=== PATIENT | female | born 1945 | race Caucasian/White ===

== ENCOUNTER 2018-01-31 05:04 | Inpatient (IN) ==
[2018-01-31] MEDS ORDERED: Metoprolol Tartrate 25 MG Tablet PO ONE (05:45)
[2018-01-31] MEDS ORDERED: Sodium Chlor 0.9% Inj 500 ML IV.CONT ONE (05:45)
[2018-01-31] MEDS ORDERED: Chlorhexidine Gluconate 2% 1 Pack (2 Cloths) TOPICAL ONE (05:45)
[2018-01-31] MEDS ORDERED: Heparin - SQ 10,000 UNITS/ML Vial SQ SCH (06:00)
[2018-01-31] MEDS ORDERED: Famotidine PF Inj 20 MG/2 ML Vial ONE (07:03)
[2018-01-31] MEDS ORDERED: Ketorolac Inj 30 MG/ML (IVP) Vial IV.PUSH ONE (07:15)
[2018-01-31] MEDS ORDERED: Phenylephrine/NS 1000 MCG/10ML Syringe IV.PUSH ONE (07:15)
[2018-01-31] MEDS ORDERED: Lidocaine PF 1% Inj 5 ML Syringe INFILTRATN ONE (07:15)
[2018-01-31] MEDS ORDERED: Sugammadex Inj 200 MG/2 ML Vial IV.PUSH ONE (11:22)
[2018-01-31] MEDS ORDERED: LORazepam 0.5 MG Tablet PO PRN (11:39)
[2018-01-31] MEDS ORDERED: Morphine Inj 30 MG/30 ML PCA.VIAL PCA PRN (11:39)
[2018-01-31] MEDS ORDERED: Naloxone Inj 0.4 MG/ML Vial IV.PUSH PRN (11:39)
[2018-01-31] MEDS ORDERED: Ketorolac Inj 30 MG/ML (IVP) Vial IV.PUSH SCH (12:00)
[2018-01-31] MEDS ORDERED: *Meperidine Inj 25 MG/ML Vial PERIprocedural Use ONLY ONE (12:13)
[2018-01-31] MEDS ORDERED: Morphine Inj 4 MG/ML Vial ONE (12:15)
[2018-01-31] MEDS ORDERED: fentaNYL Citrate Inj 100 MCG/2 ML Ampul ONE (12:15)
[2018-01-31] MEDS ORDERED: Morphine Inj 30 MG/30 ML PCA.VIAL PCA ONE (12:22)
[2018-01-31] MEDS: KCL 20 mEq/D5W/NaCl 0.45% Inj 1,000 ML IV.CONT SCH ×2 (12:24→22:53)
--- NOTE | 2018-01-31 15:17 | P.PNONC ---
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: patient is resting in bed no complaints using MATCHER OPERATOR pain controlled denies n/v Objective Vital Signs/Intake & Output: Vital Signs 01/31/18 06:19 01/31/18 11:39 01/31/18 12:04 Temperature 97.8 F 97.9 F 96.8 F L Pulse Rate 69 66 71 Respiratory Rate 20 18 24 Blood Pressure 142/83 H 111/70 103/55 L Pulse Oximetry 93 L 99 01/31/18 12:15 01/31/18 12:30 01/31/18 12:45 Temperature Pulse Rate 67 74 68 Respiratory Rate 10 L 13 11 L Blood Pressure 109/59 L 103/56 L 115/63 Pulse Oximetry 99 99 99 Intake & Output 01/30/18 01/31/18 01/31/18 18:59 06:59 18:59 Intake Total 2700 / 2700 Output Total 1440 / 1440 Balance 1260 / 1260 Weight 72.7 kg Intake: IV 100 / 100 Ancef Inj 1,000 MG In NS Inj 100 / 100 100 ML @ 100 mls/hr IV.SIG RENTAL REPRESENTATIVE [facility] Rx#:[id number] Anesthesia Amount 2600 / 2600 Output: Estimated Blood Loss 600 / 600 Urine Amount (Catheter) 840 / 840 3-way Urethral 840 / 840 Other: Weight On Admission 72.7 kg Laboratory Results: Laboratory Results - last 24 hr 01/31/18 06:55 Blood Type A Positive Antibody Screen Negative MTS Gel Crossmatch See Detail Medications: Active Medications Generic Name Dose Route Start Last Admin Trade Name Freq PRN Reason Stop Dose Admin Heparin Sodium (Porcine) 5,000 units 01/31/18 06:00 01/31/18 07:05 Heparin Inj SQ 01/31/18 21:00 5,000 units RENTAL REPRESENTATIVE [facility] Administration Sodium Chloride 500 mls @ 30 mls/hr 01/31/18 05:45 01/31/18 07:12 Ns Inj IV.CONT 01/31/18 22:24 Not Given .[id number] ONE Cefazolin Sodium 1,000 mg/ 100 mls @ 100 mls/hr 01/31/18 06:00 01/31/18 07:40 Sodium Chloride IV.SIG 01/31/18 21:00 Infused RENTAL REPRESENTATIVE [facility] Infusion Potassium Chloride/Dextrose/Sod Cl 1,000 mls @ 100 mls/hr 01/31/18 11:45 12:24 D5w/1/2ns + Kcl 20 Meq Inj IV.CONT 100 mls/hr .Q10H [facility] Administration Morphine Sulfate 30 mg in 30 mls @ 0 mls/hr 01/31/18 11:39 01/31/18 12:24 Morphine Inj MATCHER OPERATOR 0 mls/hr UNSCH PRN Administration per MATCHER OPERATOR parameters 0 MG/HR Objective Remarks: GENERAL: Well-nourished, well-developed patient. SKIN: Warm and dry. HEAD: Normocephalic. EYES: No scleral icterus. No injection or drainage. CARDIOVASCULAR: Regular rate and rhythm without murmurs. RESPIRATORY: Breath sounds equal bilaterally. No accessory muscle use. GASTROINTESTINAL: Abdomen soft, dressing is c/d/i EXTREMITIES: teds and scds MUSCULOSKELETAL: Adequate muscle tone. NEUROLOGICAL: No obvious focal deficit. Awake, alert, and oriented x3. PSYCHIATRIC: Appropriate mood and affect; insight and judgment normal. Assessment/Plan (1) Pelvic mass in female Code(s): R19.00 - Intra-abdominal and pelvic swelling, mass and lump, unspecified site Status: Resolved - Plan s/p x lap ARI with BSO and resection of pelvic mass post op orders in chart MATCHER OPERATOR and Toradol for pain ADAT OOB to chair with assistance remove Noble at post op day 2 IS to bedside
[2018-01-31] MEDS: Ketorolac Inj 30 MG/ML (IVP) Vial IV.PUSH SCH (18:35)
[2018-01-31] MEDS: Heparin - SQ 10,000 UNITS/ML Vial SQ SCH (22:52)
[2018-02-01] MEDS: Ketorolac Inj 30 MG/ML (IVP) Vial IV.PUSH SCH ×5 (00:35→23:50)
--- NOTE | 2018-02-01 07:41 | P.PN ---
Subjective Interval history: c/o discomfort c/w surgery intermittent sleep Physical Exam Vital signs: Vital Signs 01/31/18 11:39 01/31/18 12:04 01/31/18 12:15 Temperature 97.9 F 96.8 F L Pulse Rate 66 71 67 Respiratory Rate 18 24 10 L Blood Pressure 111/70 103/55 L 109/59 L Pulse Oximetry 93 L 99 99 01/31/18 12:30 01/31/18 12:45 01/31/18 16:00 Temperature 97.9 F Pulse Rate 74 68 71 Respiratory Rate 13 11 L 16 Blood Pressure 103/56 L 115/63 117/70 Pulse Oximetry 99 99 97 01/31/18 20:00 01/31/18 23:11 02/01/18 00:00 Temperature 97.4 F L 97.9 F Pulse Rate 75 74 Respiratory Rate 16 16 0 L Blood Pressure 125/79 112/73 Pulse Oximetry 95 96 02/01/18 01:05 02/01/18 04:00 Temperature 97.5 F L Pulse Rate 70 Respiratory Rate 16 16 Blood Pressure 112/73 Pulse Oximetry 92 L Intake & Output 01/31/18 02/01/18 02/01/18 18:59 06:59 18:59 Intake Total 2700 / 2700 1150 / 1150 Output Total 1440 / 1440 400 / 400 Balance 1260 / 1260 750 / 750 Weight 72.7 kg Intake: IV 100 / 100 1000 / 1000 D5W/1/2NS + KCL 20 mEq Inj 1, 1000 / 1000 000 ML @ 100 mls/hr IV.CONT . Q10H [facility] Rx#:[id number] Ancef Inj 1,000 MG In NS Inj 100 / 100 100 ML @ 100 mls/hr IV.SIG DAY CAMP UNIT LEADER [facility] Rx#:[id number] Oral 150 / 150 Anesthesia Amount 2600 / 2600 Output: Estimated Blood Loss 600 / 600 Urine Amount (Catheter) 840 / 840 400 / 400 3-way Urethral 840 / 840 400 / 400 Other: Date of Last Bowel Movement 01/31/18 - Constitutional no acute distress - Routine Respiratory Exam Present: CTA bilaterally (mild basilar rales) - Routine Cardiovascular Exam Present: RRR - Routine Abdominal Exam Present: soft, wound (clean, dry) - Routine Neurological Exam Present: alert, oriented X3 - Urinary Catheter Management 3-way Urethral Cath placed during this visit: yes Reason for continuing: Other continuation reason Insertion date: 01/31/18 Insertion time: 07:50 Results - Labs Laboratory Results - last 24 hr 01/31/18 06:55 Blood Type A Positive Antibody Screen Negative MTS Gel Crossmatch See Detail Assessment and Plan - Assessment (1) Pelvic mass in female Code(s): R19.00 - Intra-abdominal and pelvic swelling, mass and lump, unspecified site Status: Resolved - Plan pod #1 doing well in early post-op period findings at surgery, preliminary path discussed q&a, she understands oob to chair, ambulate with assist, spirometry, adat, remove martinez when ambulatory
[2018-02-01] MEDS: KCL 20 mEq/D5W/NaCl 0.45% Inj 1,000 ML IV.CONT SCH ×2 (08:03→17:38)
[2018-02-01 08:10] LABS: Baso % (Auto) 0.1 % (0.0-2.0); Eos % (Auto) 0.1 % (0.0-4.0); Hematocrit 37.7 % (35.0-46.0); Hemoglobin 12.8 gm/dL (11.6-15.3); Lymph # (Auto) 1.4 th/mm3 (1.0-4.8); Lymph % (Auto) 9.6 % (9.0-44.0); Mean Corpuscular HGB Conc 33.9 % (32.0-36.0); Mean Corpuscular Volume 85.6 fL (80.0-100.0); Mean Platelet Volume 7.9 fL (7.0-11.0); Mono # (Auto) 1.3 th/mm3 (0.0-0.9); Mono % (Auto) 9.5 % (0.0-8.0); Neut # (Auto) 11.4 th/mm3 (1.8-7.7); Neut % (Auto) 80.7 % (16.0-70.0); Platelet Count 232 th/mm3 (150-450); Red Blood Count 4.41 mil/mm3 (4.00-5.30); Red Cell Distribution Width 13.9 % (11.6-17.2); White Blood Count 14.2 th/mm3 (4.0-11.0)
[2018-02-01 08:42] LABS: Calcium 7.7 mg/dL (8.5-10.1); Potassium 4.2 meq/L (3.5-5.1)
[2018-02-01] MEDS: Heparin - SQ 10,000 UNITS/ML Vial SQ SCH ×2 (09:17→23:43)
--- NOTE | 2018-02-01 10:05 | MP ---
cc: Alisha Jones MD DATE OF OPERATION: 01/31/2018 PREOPERATIVE DIAGNOSES: 1. Large complex abdominal pelvic mass. 2. Elevated CA-125. 3. Intermittent abdominal pain, nausea. POSTOPERATIVE DIAGNOSES: 1. Left ovarian cyst adenofibroma with torsion. 2. Right high-grade ovarian adenocarcinoma. PROCEDURE: Exploratory laparotomy, total abdominal hysterectomy, bilateral salpingo-oophorectomy (with a resection of bilateral ovarian masses), omentectomy, intraperitoneal biopsies extensive lysis of adhesions. SURGEON: Alisha Jones MD. CORPORATE TRAVEL AGENT: Dara dental chairside assistant. ANESTHESIA: General endotracheal anesthesia. ESTIMATED BLOOD LOSS: 600 mL. IV FLUIDS: 2400 mL. URINE OUTPUT: 600 mL. HISTORY: A 72-year-old female who reports being asymptomatic until she went for a walk 1 day and suddenly had abdominal pain fairly intense associated with nausea and vomiting. She presented to the emergency room where exam and imaging showed a large complex mass thought to be of probable ovarian origin occupying the pelvis and extending to the level of the umbilicus at that time measuring approximately 20 cm in greatest dimension. CA-125 modestly elevated at 300. She was seen in SOLAR FIELD SERVICE TECHNICIAN oncology office where she was counseled. Surgery was recommended. She was seen again in the preoperative holding area with her family . The findings and plan of care were discussed and reviewed. Questions were asked and answered. She expressed good understanding and was ready to move forward with surgery. FINDINGS: Upon entry into the peritoneal cavity, some adhesions were taken down between the mass and the anterior abdominal wall. There were some vascular adhesions that were cauterized and transected. A large mass was in the central pelvis. There were several hundred milliliters of ascites. The ascites was removed and collected for cytology. Further dissection confirmed the large mass to be arising from and replacing the right ovary. Hand-held retractors were used to gain surgical exposure. When it became assessment to try to identify the left ovary showed there also to be a mass in the left ovary that was actually reversed above the level of the pelvic brim and the vascular pedicles were clearly torsed. The uterus was small, grossly appeared normal. There was no appreciably enlarged pelvic or paraaortic lymph nodes. The omentum was grossly normal without obvious tumor. There were no peritoneal implants. The liver diaphragm edges were smooth. The large and small bowel and adjacent mesentery were free of tumor implants. There was no appreciably enlarged, as mentioned, no adenopathy detected. At the conclusion of the case, essentially everything that was visibly or palpably abnormal had been removed as the abnormalities appeared to be limited to the ovarian masses. It is noted that even though frozen section on the left ovary showed what appeared to be a benign cystadenofibroma, there were malignant implants on the surface of the ovary that appeared more likely on preliminary assessment to be metastatic than to be from that ovary. Frozen section on the right ovarian mass showed that to be a high-grade adenocarcinoma. STATEMENT OF COMPLEXITY/MODIFIER: The complexity of this case was increased and significant additional time was required in dissection for lysing extensive adhesions to gain access to the peritoneal cavity to establish anatomy, restore normal anatomy, resect the tumor, and to accomplish surgical objectives. Modifier should be applied accordingly. DETAILS OF PROCEDURE: She was taken to the operating room and placed in dorsal lithotomy position after general endotracheal anesthesia was administered. A timeout was undertaken. She was identified by site recognition and hospital ID bracelet and the proposed procedure was reviewed and confirmed. She was carefully positioned in padded Yellofin stirrups in lithotomy position, arms padded out to the sides. All positions were checked and noted to be properly aligned with no malalignment or pressure points. She was prepped and draped in sterile fashion. Noble catheter had been placed in the bladder. Ioban used across the abdominal area and confirmed that an orogastric tube was in the stomach on suction. Midline incision made from the symphysis to the umbilicus, carried down to the level of the fascia. The fascia was entered. The rectus muscles were in the midline. The peritoneal cavity was entered with initial assessment as described above. Melania-colored ascites from the pelvis was collected and sent for cytology. Visual and manual palpation allowed identification of the small uterus, which was retroverted in the cul-de-sac. Clamps were placed on the lateral angles of the uterus to elevate the uterus, which led to better visualization and identification of the left ovary malpositioned with torsed gonadal vessels as described above. Attention was directed first to the left side. There were vascular adhesions between the ovaries in between the ovarian mass and the abdominal wall. These were cauterized and transected to help facilitate mobility. The left round ligament was doubly suture ligated and transected. The anterior and posterior leafs of the broad ligament were opened. The left ureter was identified. The left infundibulopelvic ligament was isolated. The intervening peritoneum was opened. The infundibulopelvic ligament was dissected free of the adjacent adhesions between the colon and the infundibulopelvic ligament until the gonadal vessels could be clamped, cut, and doubly suture ligated. The left uteroovarian ligament was isolated and then clamped and cut, thereby removing the left ovarian mass which was sent for frozen section analysis with findings as described above. Attention was directed toward the right side where the right round ligament was doubly suture ligated, transected. The anterior and posterior leaves of the broad ligament were opened. The right ureter was identified. The right infundibulopelvic ligament was isolated. The intervening peritoneum was opened. The infundibulopelvic ligament was dissected to the level of the pelvic brim where it was doubly clamped, cut, and doubly suture ligated. Additional adhesions were taken down with sharp dissection circumferentially around the right ovarian mass until it could be mobilized, isolated attached by the right uteroovarian ligament, which was clamped and cut, thereby removing the right ovarian mass which was sent for frozen section analysis with findings as described above. Attention was now directed to re-explore the abdomen as there was now greater access. Essentially the remaining anatomy was completely normal as outlined. Attention was directed toward the omentectomy. The fascial incision was extended a couple of centimeters to the left of the umbilicus without having to extend the skin incision and this gave enough exposure to begin isolation and dissection of the omentum. Dissection was started near the hepatic flexure. Nonvascular attachments were taken down with cautery. Vascular attachments were isolated, clamped, cut, and suture ligated with 2-0 Vicryl sutures in a stepwise fashion, followed along the transverse colon towards the splenic flexure, such that the infracolic omentum with a small section of the gastrocolic ligament was removed. It was again inspected, palpated, and as described above was grossly normal. Multifocal peritoneal biopsies were taken down with sharp dissection and/or cautery in the abdomen and pelvis. There were no visible abnormalities, but any area of adhesions were also included in the dissection and sent collectively as peritoneal biopsies. Careful inspection and palpation of the pelvic and paraaortic lymph nodes did not reveal any suspiciously enlarged lymph nodes. It was felt that the morbidity associated with lymphadenectomy exceeded potential benefit. So, lymphadenectomy was not performed. Lap pads and a Bookwalter retractor were used to assist in surgical exposure and direction. Our attention was directed toward hysterectomy. The vesicouterine peritoneum was dissected off the lower uterine segment and cervix bilaterally to dissect the bladder flap below the level of the cervix. The posterior peritoneum was opened posteriorly and dissected down below the level of the cervix. The uterine vessels were skeletonized bilaterally and then clamped, cut, and suture ligated. Dissection was carried along the right side where the right cardinal, paracervical, and uterosacral ligaments were isolated, clamped, cut, and suture ligated in stepwise fashion; and then attention was redirected toward the left side, where similarly the left cardinal, paracervical, and uterosacral ligaments were isolated, clamped, cut, and suture ligated. Curved Vernon clamps were placed below the cervix at the lateral vaginal angles and sharp dissection was used to separate the cervix from the upper vagina. The specimen was inspected. The entire cervix noted to be removed and the uterus and cervix were sent for permanent histopathologic analysis. The vaginal cuff was supported at the angles with [id number] #0 Vicryl sutures, incorporating the edge of the uterosacral ligament and posterior peritoneum, and the remainder of the vaginal cuff was closed with full-thickness [id number] sutures incorporating the edge of the posterior peritoneum, which rendered the vaginal cuff hemostatic and well supported. The pelvis was thoroughly irrigated. Small bleeders rendered hemostatic with bipolar cautery or interrupted [id number] 3-0 Vicryl sutures until all sites were satisfactorily hemostatic. There was good peristalsis of ureters bilaterally. All grossly detectable tumor had been removed and hemostatic Surgicel SNoW was placed across the lateral pelvic sidewall dissection and across the vaginal cuff to assist in continued hemostasis. The lap pads and Bookwalter retractor were removed. Visual and palpable inspection confirmed there were no remaining foreign objects in the peritoneal cavity. Inspection, however, revealed that there was still some residual omentum toward the hepatic flexure with adherence to the right anterior abdominal wall; and although the omentum appeared grossly normal, steps were taken to remove this to ensure there was no focus of microscopic disease that persisted. Sharp dissection was used to free the ascending colon from the anterior abdominal wall and to free the omentum from the ascending colon at the hepatic flexure along the transverse colon. Nonvascular attachments were with cautery. Vascular attachments were isolated, clamped, cut, and suture ligated with 2-0 Vicryl sutures to remove this residual omentum. The bowel and the adjacent mesentery were inspected and noted to be intact without injury. The large bowel was inspected throughout and appeared intact. The small bowel was run from the ileocecal valve to the ligament of Treitz. The appendix appeared normal. There were no peritoneal implants on the large or small bowel or on any of the mesentery. There was no compromise to the small or large bowel, no adhesions that remained, and essentially appeared normal. Visual and manual inspection again confirmed there were no remaining foreign objects in the peritoneal cavity. Repeat count confirmed the counts were normal and attention was directed toward closing. The abdominal wall was closed with a running looped PDS suture in a modified Smead-Willard fashion starting at the apices and meeting in the midpoint where the sutures were tied. Subcutaneous tissue was irrigated. Beulah fascia reapproximated with interrupted 2-0 Vicryl sutures and the skin edges were closed with 3-0 Vicryl subcuticular. Steri-Strips and dry sterile dressing placed over the incision. Pelvic exam confirmed there were no remaining foreign objects in the vagina. Preliminary and final counts were now correct. She was returned to dorsal supine position and was pending reversal of anesthesia when I left the operating room to precede her to the postanesthesia care unit. MD REBECCA Amor/alyssa , 07:58 AM , 08:20 AM
[2018-02-01 12:38] VITALS: O2SAT 96
[2018-02-02] MEDS: KCL 20 mEq/D5W/NaCl 0.45% Inj 1,000 ML IV.CONT SCH (03:48)
--- NOTE | 2018-02-02 07:57 | P.PNONC ---
Subjective Interval history: industrial machine system technician/onc progress note POD #3 patient is sitting up in bed without any complaints has been OOB to chair and ambulate denies any vomiting pain controlled meets criteria for discharge home today after first void Objective Vital Signs/Intake & Output: Vital Signs 02/01/18 08:00 02/01/18 12:00 02/01/18 16:00 Temperature 98.4 F 98.1 F Pulse Rate 66 74 81 Respiratory Rate 16 16 16 Blood Pressure 123/71 105/60 Pulse Oximetry 99 96 02/01/18 16:02 02/01/18 20:00 02/02/18 00:00 Temperature 98.3 F 98.2 F Pulse Rate 77 80 Respiratory Rate 16 16 Blood Pressure 117/65 117/66 Pulse Oximetry 96 02/02/18 00:20 02/02/18 04:00 Temperature 98.2 F Pulse Rate 93 H Respiratory Rate 16 16 Blood Pressure 124/71 Pulse Oximetry Intake & Output 02/01/18 02/02/18 02/02/18 18:59 06:59 18:59 Intake Total 1999 1200 / 1200 Output Total 1300 / 1300 Balance 1999 -100 / -100 Weight 72.5 kg Intake: IV 1999 1000 / 1000 D5W/1/2NS + KCL 20 mEq Inj 1, 1999 1000 / 1000 000 ML @ 100 mls/hr IV.CONT . Q10H [facility] Rx#:[id number] Oral 200 / 200 Output: Urine Amount (Catheter) 1300 / 1300 3-way Urethral 1300 / 1300 Other: Date of Last Bowel Movement 01/31/18 Result Diagrams: 02/01/18 07:41 02/01/18 07:41 Laboratory Results: Laboratory Results - last 24 hr 02/01/18 02/01/18 07:41 07:41 WBC 14.2 H RBC 4.41 Hgb 12.8 Hct 37.7 MCV 85.6 MCH 29.0 MCHC 33.9 RDW 13.9 Plt Count 232 D MPV 7.9 Neut % (Auto) 80.7 H Lymph % (Auto) 9.6 Sargent % (Auto) 9.5 H Eos % (Auto) 0.1 Baso % (Auto) 0.1 Neut # (Auto) 11.4 H Lymph # (Auto) 1.4 Sargent # (Auto) 1.3 H Eos # (Auto) 0.0 Baso # (Auto) 0.0 WBC Differential . Differential Comment Auto diff final Sodium 138 Potassium 4.2 Chloride 106 Carbon Dioxide 25.0 Anion Gap 7 BUN 10 Creatinine 0.68 Estimated GFR 85 L Random Glucose 127 H Calcium 7.7 L Medications: Active Medications Generic Name Dose Route Start Last Admin Trade Name Freq PRN Reason Stop Dose Admin Heparin Sodium (Porcine) 5,000 units 01/31/18 21:00 02/01/18 23:43 Heparin Inj SQ 5,000 units Q12HR [facility] Administration Potassium Chloride/Dextrose/Sod Cl 1,000 mls @ 100 mls/hr 01/31/18 11:45 03:48 D5w/1/2ns + Kcl 20 Meq Inj IV.CONT 100 mls/hr .Q10H [facility] Administration Morphine Sulfate 30 mg in 30 mls @ 0 mls/hr 01/31/18 11:39 02/01/18 19:19 Morphine Inj FORMULA MIXER 0 mls/hr UNSCH PRN Infusion per FORMULA MIXER parameters 0 MG/HR Ketorolac Tromethamine 15 mg 01/31/18 18:00 02/01/18 23:50 Toradol Inj IV.PUSH 02/02/18 12:01 15 mg Q6HR [facility] Administration Ondansetron HCl 4 mg 01/31/18 11:39 02/01/18 19:40 Zofran Inj IV.PUSH 4 mg Q6H PRN Administration NAUSEA OR VOMITING Pravastatin Sodium 40 mg 02/01/18 09:00 02/01/18 09:17 Pravachol PO 40 mg DAILY [facility] Administration Sodium Chloride 2 ml 01/31/18 21:00 02/01/18 23:44 Ns Flush IV.FLUSH Not Given BID [facility] Objective Remarks: GENERAL: Well-nourished, well-developed patient. SKIN: Warm and dry. HEAD: Normocephalic. EYES: No scleral icterus. No injection or drainage. CARDIOVASCULAR: Regular rate and rhythm without murmurs. RESPIRATORY: Breath sounds equal bilaterally. No accessory muscle use. GASTROINTESTINAL: Abdomen soft, non-tender, nondistended. dressing c/d/i, +bs x 4 EXTREMITIES: No cyanosis, or edema. MUSCULOSKELETAL: Adequate muscle tone. NEUROLOGICAL: No obvious focal deficit. Awake, alert, and oriented x3. PSYCHIATRIC: Appropriate mood and affect; insight and judgment normal. Assessment/Plan (1) Pelvic mass in female Code(s): R19.00 - Intra-abdominal and pelvic swelling, mass and lump, unspecified site Status: Resolved - Plan s/p x lap ARI with BSO and resection of pelvic mass post op orders in chart FORMULA MIXER and Toradol for pain ADAT OOB to chair with assistance remove Noble at post op day 2 IS to bedside POD #3 meets criteria for discharge today ok to restart home meds discussed discharge instructions will follow up in industrial machine system technician/onc clinic in 2 weeks for final pathology needs to void prior to discharge discussed with Dr. Jones he agrees with discharge discussed with RN.
[2018-02-02] MEDS: Heparin - SQ 10,000 UNITS/ML Vial SQ SCH (09:39)
[2018-02-02] MEDS: Ketorolac Inj 30 MG/ML (IVP) Vial IV.PUSH SCH (09:59)
[2018-02-02 10:54] VITALS: BP 143/81; PULSE 82; RESP 17; TEMP 98
== END 2018-02-02 11:30 | disposition home or self-care (01) ==
LOC: HSDI 05:04 → HCIN 13:26
PROVIDERS: ADMIT Obstetrics & Gynecology Gynecologic Oncology; ATTEND Obstetrics & Gynecology Gynecologic Oncology

== ENCOUNTER 2018-02-10 18:53 | Inpatient (IN) ==
--- NOTE | 2018-02-10 23:24 | P.HPIM ---
History of Present Illness Service: [facility] hospitalists Primary Care Physician: Brock Mota Chief Complaint: Abdominal pain with nausea History of Present Illness: Mrs. Hernadez is a pleasant 72-year-old female with a history of PE/DVT in 1998 followed by 1 year of anticoagulation, right breast cancer, hyperlipidemia , and ovarian adenocarcinoma with recent exploratory laparotomy with ARI and BSO and resection of bilateral ovarian masses on 01/31/[address] Jones who was admitted to [facility] for management of small bowel obstruction and bilateral pneumonia on February 07. The patient has been transferred to [facility] under the hospitalist service for further evaluation and management. Patient is seen in her hospital room. She reports pain level of 3 out of 10, throughout abdomen but mostly on the right, worse with light palpation and improved with IV pain medications. She reports improvement of nausea with NG tube to low intermittent wall suction. . Inpatient Certification: I certify that the inpatient services were ordered in accordance with Medicare regulations governing the order. This includes certification that hospital inpatient services are reasonable and necessary and in the case of services not specified as inpatient-only under 42 CFR 419.22(n), that they are appropriately provided as inpatient services in accordance to with the 2-midnight benchmark under 43 CFR 412.3(e) Review of Systems All other systems reviewed negative except as stated in HPI [facility] - Medical History Medical History: Medical History (Last Updated 02/11/18 @ 01:12 by SERGIO Fairchild) Colitis Ovarian carcinoma Pneumonia SBO (small bowel obstruction) High cholesterol History of anesthesia reaction Mass Nausea and vomiting Wears dentures Wears eyeglasses - Surgical History Surgical History: Surgical History (Last Reviewed 02/10/18 @ 23:46 by SREGIO Fairchild) History of lumpectomy of right breast Hx of eye surgery - Family History Family History: Family History (Last Updated 02/10/18 @ 23:46 by SERIGO Fairchild) Other Family history of cancer Family history of ovarian cancer - Tobacco History Tobacco Type: Cigarettes - Substance Use History Substance History: No History of Abuse Medications and Allergies Allergies Allergy/AdvReac Type Severity Reaction Status Date / Time No Known Allergies Allergy Verified 01/31/18 06:06 Home Medications Medication Instructions Recorded Confirmed Type ibuprofen-diphenhydramine cit 2 tab PO HS 01/27/18 01/31/18 History [Advil PM] utkhqwpcbemp-nqk-jvnt-FA-vit K 1 tab PO DAILY 01/27/18 01/31/18 History [Adults Multivitamin] pravastatin 40 mg PO DAILY 01/27/18 01/31/18 History Exam Narrative: GENERAL: This is a well-nourished, well-developed patient, in no apparent distress. SKIN: No rashes, ecchymoses or lesions. Cool and dry. HEAD: Atraumatic. Normocephalic. EYES: No scleral icterus. No injection or drainage. Left eye prosthetic noted. ENT: Nose without bleeding, purulent drainage. NECK: Trachea midline. No JVD or lymphadenopathy. CARDIOVASCULAR: Regular rate and rhythm without murmurs, gallops, or rubs. RESPIRATORY: Clear to auscultation. Breath sounds equal bilaterally. No wheezes , rales, or rhonchi. GASTROINTESTINAL: Abdomen soft, diffusely tender>on right, nondistended. No guarding. Midline abdominal incision appears healing, edges are well- approximated, and incision is covered with Steri-Strips. MUSCULOSKELETAL: Extremities without clubbing, cyanosis, or edema. No calf tenderness. NEUROLOGICAL: Awake and alert. Motor and sensory grossly within normal limits. Normal speech. . Caprini VTE Risk Assessment Caprini VTE Risk Assessment: Moderate/High Risk (score >= 2) Caprini Risk Assessment Model: Point Value = 1 Point Value = 2 Point Value = 3 Point Value = 5 Age 41-60 Minor surgery BMI > 25 kg/m2 Swollen legs Varicose veins or History of unexplained or recurrent spontaneous Oral contraceptives or hormone replacement Sepsis (< 1 month) Serious lung disease, including pneumonia (< 1 month) Abnormal pulmonary function Acute myocardial infarction Congestive heart failure (< 1 month) History of inflammatory bowel disease Medical patient at bed rest Age 61-74 Arthroscopic surgery Major open surgery (> 45 min) Laparoscopic surgery (> 45 min) Malignancy Confined to bed (> 72 hours) Immobilizing plaster cast Central venous access Age >= 75 History of VTE Family history of VTE Factor V Leiden Prothrombin [id number] Lupus anticoagulant Anticardiolipin antibodies Elevated serum homocysteine Heparin-induced thrombocytopenia Other congenital or acquired thrombophilia Stroke (< 1 month) Elective arthroplasty Hip, pelvis, or leg fracture Acute spinal cord injury (< 1 month) Prophylaxis Regimen: Total Risk Factor Score Risk Level Prophylaxis Regimen 0-1 Low Early ambulation 2 Moderate Order ONE of the following: *Sequential Compression Device (SCD) *Heparin 5000 units SQ BID 3-4 Higher Order ONE of the following medications: *Heparin 5000 units SQ TID *Enoxaparin/Lovenox 40 mg SQ daily (WT < 150 kg, CrCl > 30 mL/min) *Enoxaparin/Lovenox 30 mg SQ daily (WT < 150 kg, CrCl > 10-29 mL/min) *Enoxaparin/Lovenox 30 mg SQ BID (WT < 150 kg, CrCl > 30 mL/min) AND/OR *Sequential Compression Device (SCD) 5 or more Highest Order ONE of the following medications: *Heparin 5000 units SQ TID (Preferred with Epidurals) *Enoxaparin/Lovenox 40 mg SQ daily (WT < 150 kg, CrCl > 30 mL/min) *Enoxaparin/Lovenox 30 mg SQ daily (WT < 150 kg, CrCl > 10-29 mL/min) *Enoxaparin/Lovenox 30 mg SQ BID (WT < 150 kg, CrCl > 30 mL/min) AND *Sequential Compression Device (SCD) Assessment and Plan - Plan Mrs. Hernadez is a pleasant 72-year-old female with a history of PE/DVT in 1998 followed by 1 year of anticoagulation, right breast cancer, hyperlipidemia , and ovarian adenocarcinoma with recent exploratory laparotomy with ARI and BSO and resection of bilateral ovarian masses on 01/31/[address] Jones who was admitted to [facility] for management of small bowel obstruction and bilateral pneumonia on February 07. The patient has been transferred to [facility] under the hospitalist service for further evaluation and management. Small bowel obstruction -noted on imaging at [facility] -Consult general surgery -appreciate assistance -Continue n.p.o. status with NG tube to low intermittent wall suction -Dilaudid 0.5 mg IV every 4 hours as needed for pain -Zofran PRN nausea/vomiting Bilateral pneumonia, lower lobes -noted on imaging at [facility] -Continue Levaquin as previously ordered Mild colitis -noted on imaging at [facility] -Continue metronidazole Hyperlipidemia -Holding atorvastatin at this time given n.p.o. status DVT prophylaxis -Chemoprophylaxis on hold pending general surgery evaluation -Bilateral SCDs Code Status: Patient desires DNR CODE STATUS -CODE STATUS reviewed in detail with patient- patient is aware of DNR CODE STATUS would be temporarily rescinded in the event of surgery Discussed Condition With: Dr. Cortez, patient, and RN
[2018-02-11] MEDS ORDERED: Bisacodyl 10 MG Supp RECTAL PRN (00:20)
[2018-02-11] MEDS: Sod Chloride 0.9% Inj 1,000 ML IV.CONT SCH ×3 (00:44→21:39)
[2018-02-11] MEDS: Famotidine PF Inj 20 MG/2 ML Vial IV.PUSH SCH ×3 (00:47→21:32)
[2018-02-11] MEDS: HYDROmorphone PF Inj 2 MG/ML Vial IV.PUSH PRN ×3 (04:35→17:44)
--- NOTE | 2018-02-11 09:32 | MB ---
cc: Alisha Jones MD, Renato Minouei,April Davila DATE: 02/11/2018 PHYSICIAN REQUESTING CONSULT: Kathi Andres MD REASON FOR CONSULTATION: 1. The patient known to us with ovarian cancer. 2. Recent surgery, now with signs and symptoms of small bowel obstruction. HISTORY OF PRESENT ILLNESS: A 72-year-old female who on 01/31/2018 underwent exploratory laparotomy, total abdominal hysterectomy, bilateral salpingo-oophorectomy (with resection of large bilateral ovarian masses) omentectomy, intraperitoneal biopsies, and extensive lysis of adhesions. Findings at the time of surgery were that of a benign-appearing left ovarian mass that was torsed, but it had malignant tumor implants on it. The right ovary was markedly enlarged and was clearly a poorly differentiated adenocarcinoma. It seemed to be the source of the tumor. There were no other overt areas of tumor. No intraperitoneal implants detectable at the time of surgery. She contacted our office sometime over the preceding week, where she was having abdominal pain, intermittent. She had some nausea with vomiting. She was instructed to present to our emergency room; however, her and her elected to go to [facility]. She has been admitted to [facility]. She has had a nasogastric tube in for decompression with the working premise being ileus versus small bowel obstruction. There were also findings on x-ray suggestive of possible pneumonia, and she was apparently being treated for that as well. She had some clinical improvement but without return of bowel function, and so Gastrografin contrast study upper GI with small bowel followthrough was done yesterday, which apparently showed a focal point in the mid small bowel with decompressed bowel thereafter and no transition or passage of the contrast, suggesting a small bowel obstruction. At this point, her surgeon overseeing her care at [facility] had recommended consideration of surgery, but apparently the patient and her now requested transfer to [place]. I spoke with her surgeon and transfer arrangements were made. I am very grateful for the hospitalist's willingness and assistance and for their excellent care in the management of this individual. She is seen now in consultation for further evaluation and recommendations regarding these findings. PAST MEDICAL HISTORY: She has a history of deep vein thrombosis, possible pulmonary embolus years ago. She was on anticoagulation for a 1-year period of time. She has a recent diagnosis of ovarian cancer. She has a history of hypertension, elevated cholesterol, colitis, possible pneumonia. PAST SURGICAL HISTORY: As outlined above. Recent exploratory laparotomy. She has also had a lumpectomy of the right breast. She has had eye surgery. FAMILY HISTORY: Ovarian cancer. SOCIAL HISTORY: She is , has a supportive . Has used tobacco. REVIEW OF SYSTEMS: As stated in the history of present illness. She has not felt febrile. There has been no blood noted with bladder function or with emesis. The emesis has essentially resolved as long as the nasogastric tube has been in. There has not been any consistent flatus. Her abdominal pain is low to intermediate and is intermittent in nature. PHYSICAL EXAMINATION: VITAL SIGNS: She is afebrile, pulse 72-78, respirations 16-18, blood pressure 119-143/72-84, O2 saturation is 94%-96%. GENERAL: She is alert and oriented x3. She is a little uncomfortable and appears a little anxious, but is in no acute distress. Nasogastric tube in place seems to be functioning adequately. LYMPH NODE SURVEY: Negative. LUNGS: Clear. Mild rales at the bases. CARDIOVASCULAR: Regular rate and rhythm. ABDOMEN: Perhaps slight or minimal distention. Some discomfort on deep palpation, but no overt rebound or guarding. Midline incision is healing well. No bleeding. EXTREMITIES: Nontender. No palpable cords. LABORATORY DATA: There is no updated labs yet this admission. In and outs of 100 in, 300 out with 100 of it being gastric drainage since admission. DISCUSSION: Time spent in discussion with her reviewing the findings in the case today. I am sorry she is feeling poorly. I summarized the aforementioned findings and update as per records available and discussion with [facility] surgeon. I explained that this early after surgery the most likely explanation for mechanical small bowel obstruction would be that scar tissues (adhesions) have formed at one or multiple areas that are compromising the normal anatomy and normal peristaltic function of the bowel. It is also possible that there is a strong component of an ileus, which is dysfunctional peristalsis, and whether or not that would improve and resolve with continued nasogastric decompression is uncertain. I explained that the Gastrografin study, per report, favored more likely an obstruction as opposed to an ileus. It is quite possible that surgery would be recommended, given that she had a recent midline vertical incision and pelvic dissection and almost certain that adhesions would be in the pelvis and I would suspect probably along the anterior abdominal wall adherent to the midline vertical incision. If it is possible to address the problem laparoscopically, this may help her have a more rapid recovery, and I may well consult one of our excellent colleagues in general surgery who have experience in addressing small bowel obstructions laparoscopically, which may be advantageous in her recovery. I may ask them to direct the management and hopefully I could work with them in helping her resolve these issues. I summarized the pathology from her previous surgery and discussed that whereas all grossly detectable tumor had been resected, that based on the findings once she recovers we will need to have a more detailed discussion about consideration of chemotherapy, and if she elects in favor of chemotherapy, this could be overseen by medical oncology in [place] to help with the logistical issues. Discussion ensued. Questions were asked and answered. She expressed good understanding and agreed. ASSESSMENT: 1. Ovarian cancer, status post exploratory laparotomy, tumor resection and staging on 01/31/2018. 2. Signs and symptoms of ileus versus small bowel obstruction with findings as described above. 3. Extensive discussion. PLAN: 1. I am very grateful for hospitalist excellent medical care. 1. Continue nasogastric decompression, IV fluids, supportive care with fluid and electrolyte repletion. 2. Consult general surgery to help with evaluation and management and consider whether or not if surgery is recommended this could be addressed laparoscopically. MD REBECCA Amor/josué , 07:51 AM , 08:06 AM
[2018-02-11] MEDS: Levofloxacin 500 mg Premix Inj 500 MG/100 ML PIGGYBACK IV.SIG SCH (09:57)
--- NOTE | 2018-02-11 10:44 | P.CONGS ---
[facility] Surgery Consult Note Consult date: 02/11/18 Reason for consult: other (Small bowel obstruction) Requesting physician: April Wheeler Narrative: CONSULTATION NOTE FOR SURGICAL ATTENDING, DR. ANDREW GUNN This is a 72 year old female with a past medical history of DVT in 1998, RIGHT breast cancer, hyperlipidemia and ovarian adenocarcinoma. She had a total abdominal hysterectomy and bilateral salpino-oophorectomy on Jan 31, [address] Jones. The patient had no complications and recovered in the hospital and went home on Feb 02. She was passing flatus but no gas. The patient was home for only about 5 days and reports that her appetite was low. She went to [facility] on February 07 with complaints of abdominal pain with nausea and vomiting. She had a series of CT scans and XRs and was diagnosed with a small bowel obstruction vs post operative ileus. An NGT was place on WednesdayFebruary 08. The patient was transferred to [facility] for evaluation of Dr. Jones yesterday. Of note, the patient does state that she had an "anesthesia reaction" several years ago where she was very difficult to arouse and had nausea. A General Surgery consultation has been requested. Review of Systems All other systems reviewed negative except as stated in HPI [facility] - History History Provided By: Patient, Medical Record - Medical History Medical History: Medical History (Last Reviewed 02/11/18 @ 14:57 by Andrew Gunn MD) Colitis Ovarian carcinoma Pneumonia SBO (small bowel obstruction) High cholesterol History of anesthesia reaction Mass Wears dentures Wears eyeglasses - Surgical History Surgical History: Surgical History (Last Reviewed 02/11/18 @ 14:57 by Andrew Gunn MD) History of total abdominal hysterectomy and bilateral salpingo-oophorectomy History of lumpectomy of right breast Hx of eye surgery - Family History Family History: Family History (Last Reviewed 02/11/18 @ 14:57 by Andrew Gunn MD) Other Family history of cancer Family history of ovarian cancer - Social History I have reviewed the patient's Social History: Yes - Tobacco History Second Hand Smoke Exposure: No Smoking Status: Never smoker Tobacco Type: Cigarettes - Alcohol History How Often Do You Have a Drink Containing Alcohol: Never - Substance Use History Substance History: No History of Abuse - Immunization History Tetanus Immunization: <5 Years Hx Influenza Vaccine This Season: No Medications and Allergies Allergies Allergy/AdvReac Type Severity Reaction Status Date / Time No Known Allergies Allergy Verified 01/31/18 06:06 Home Medications Medication Instructions Recorded Confirmed Type ibuprofen-diphenhydramine cit 2 tab PO HS 01/27/18 01/31/18 History [Advil PM] [id number]-rdp-[id number]-FA-vit K 1 tab PO DAILY 01/27/18 01/31/18 History [Adults Multivitamin] pravastatin 40 mg PO DAILY 01/27/18 01/31/18 History Active Medications: Active Medications Bisacodyl (Dulcolax Supp) 10 mg RECTAL DAILY PRN PRN Reason: SEVERE CONSITIPATION Famotidine (Pepcid Pf Inj) 20 mg IV.PUSH Q12HR BASIM Last Admin: 02/11/18 09:56 Dose: 20 mg Hydromorphone HCl (Dilaudid Pf Inj) 0.5 mg IV.PUSH Q4H PRN PRN Reason: pain > 4 Last Admin: 02/11/18 09:49 Dose: 0.5 mg Sodium Chloride (Ns Inj) 1,000 mls @ 100 mls/hr IV.CONT .Q10H BASIM Last Admin: 02/11/18 00:44 Dose: 100 mls/hr Levofloxacin/Dextrose (Levaquin 500 Mg Premix Inj) 500 mg in 100 mls @ 100 mls/ hr IV.SIG Q24H BASIM Last Admin: 02/11/18 09:57 Dose: 100 mls/hr Metronidazole/Sodium Chloride (Flagyl 500 Mg Inj) 100 mls @ 100 mls/hr IV.SIG Q8H BASIM Last Infusion: 02/11/18 05:24 Dose: Infused Fluconazole (Diflucan 200 Mg Premix Bag) 100 mls @ 100 mls/hr IV.SIG Q24H BASIM Ondansetron HCl (Zofran Inj) 4 mg IV.PUSH Q6H PRN PRN Reason: NAUSEA OR VOMITING Last Admin: 02/11/18 04:58 Dose: 4 mg Exam Vital signs: Vital Signs 02/10/18 22:40 02/11/18 00:00 02/11/18 04:00 Temperature 97.8 F 97.6 F 98.0 F Pulse Rate 74 72 78 Respiratory Rate 18 16 16 Blood Pressure 119/75 124/84 138/72 Pulse Oximetry 94 L 96 95 02/11/18 08:00 Temperature 98.2 F Pulse Rate 83 Respiratory Rate 18 Blood Pressure 130/85 Pulse Oximetry 98 Intake & Output 02/10/18 02/11/18 02/11/18 18:59 06:59 18:59 Intake Total 100 / 100 Output Total 300 / 300 Balance -200 / -200 Weight 69.4 kg Intake: IV 100 / 100 Flagyl 500 MG Inj 100 ML @ 100 100 / 100 mls/hr IV.SIG Q8H [facility] Rx#: [id number] Output: Urine 200 / 200 Gastric Drainage 100 / 100 Pre-Hospital Right Nare 100 / 100 Other: Weight On Admission 69.4 kg Narrative: GENERAL: 72 year old female sitting up resting in bed in no acute distress. SKIN: Warm and dry. HEAD: Atraumatic. Normocephalic. EYES: Pupils equal and round. No scleral icterus. No injection or drainage. ENT: No nasal bleeding or discharge. Mucous membranes pink and moist. NGT in place to LIWS to RIGHT nare. NECK: Trachea midline. CARDIOVASCULAR: Regular rate and rhythm. RESPIRATORY: No accessory muscle use. Clear to auscultation. Breath sounds equal bilaterally. GASTROINTESTINAL: Abdomen soft, mildly distended. Minimally tender. Well healing midline incision with Steri-Strips in place. MUSCULOSKELETAL: Extremities without clubbing, cyanosis, or edema. No obvious deformities. NEUROLOGICAL: Awake and alert. No obvious cranial nerve deficits. Motor grossly within normal limits. Five out of 5 muscle strength in the arms and legs. Normal speech. PSYCHIATRIC: Appropriate mood and affect; insight and judgment normal. Results - Labs Laboratory Results - last 24 hr 02/11/18 05:00 POC Glucose 100 - Imaging Imaging: ITS Impressions Abdomen X-Ray 02/11/18 00:00 CONCLUSION: 1. Mildly dilated air-filled loop of small bowel within the left abdomen suggesting mild ileus or partial small bowel obstruction. Clinical correlation is recommended. Abdominal x-ray: report reviewed, image reviewed Assessment and Plan - Assessment (1) Ileus, postoperative Code(s): K91.89 - Other postprocedural complications and disorders of digestive system; K56.7 - Ileus, unspecified Status: Acute Plan: 72 year old female s/p ARI/BSO on Jan [address] Jones; now back with abdominal pain; nausea; vomiting; SBO vs ileus -Favor post operative ileus -IVF -KUB reviewed---contrast through to large intestine -Trial clamping NGT and sips of clears -Bowel regimen -OOB and mobilize -Discussed plan with patient and family at bedside -All questions answered -Thank you for this consult; We will continue to follow - Plan Discussed Condition With: Dr. Velia Merrill RN Mrs. Hernadez +, son and daughter in law - Attending Attestation CONSULTATION NOTE FOR SURGICAL ATTENDING, DR. ANDREW GUNN Patient seen family at bedside Reviewed x-rays Contrast in the large bowel on recent x-ray I suspect she has an ileus She had a bowel movement earlier today Discussed ileus with the patient she appears to understand Bowel regime for treatment no surgical intervention at this time I agree with above assessment and plan. The exam, history, and the medical decision-making described in the above note were completed with the assistance of the mid-level provider. I reviewed and agree with the findings presented. I attest that I had a [id number] encounter with the patient on the same day, and personally performed and documented my assessment and findings in the medical record. The following services were provided during this hospital visit: Chart data review, vital sign assessments/reviewing monitor data Review of consultations notes if present. Medication orders/review and/or management Ordering and/or reviewing lab tests Ordering and/or interpreting/reviewing x-rays and/or diagnostic studies Care of the patient and discussion of the patient with the care team Documentation time To help prompt me to consider important information that might be impacting today's encounter and assessment, Information from prior notes written by myself or my colleagues may have been "brought forward/copy and pasted" into today's note.
--- NOTE | 2018-02-11 10:52 | XR ---
EXAM DATE: 02/11/2018 12:00 AM EDT AGE/SEX: 72 years / Female INDICATIONS: Evaluate for SBO vs ileus. CLINICAL DATA: This is the patient's subsequent encounter. Patient reports that signs and symptoms h ave been present for 4 - 6 days and indicates a pain score of 6/10. MEDICAL/SURGICAL HISTORY: . Hypercholesterolemia. Carcinoma, breast. . Hypercholesterolemia. C arcinoma, breast. COMPARISON: No prior exams available for comparison. FINDINGS: Residual contrast is noted throughout the colon. The colon is nondilated. There is a mildly dilated a ir-filled loop of small bowel within the left abdomen suggesting mild ileus or partial small bowel ob struction. Clinical correlation is recommended. Nasogastric tube has its tip in the stomach. CONCLUSION: 1. Mildly dilated air-filled loop of small bowel within the left abdomen suggesting mild ileus or pa rtial small bowel obstruction. Clinical correlation is recommended. Electronically signed by: Josafat Clemente MD 02/11/2018 10:51 AM EDT
--- NOTE | 2018-02-11 13:15 | P.PNIM ---
Subjective Interval history: The patient was resting in bed comfortably. She had the NG tube in place. Her family was at the bedside. The patient endorsed some nausea. She said her pain was controlled. She was passing gas. Discussed with nursing at the bedside. Physical Exam Vital signs: Vital Signs 02/10/18 22:40 02/11/18 00:00 02/11/18 04:00 Temperature 97.8 F 97.6 F 98.0 F Pulse Rate 74 72 78 Respiratory Rate 18 16 16 Blood Pressure 119/75 124/84 138/72 Pulse Oximetry 94 L 96 95 02/11/18 08:00 02/11/18 12:23 Temperature 98.2 F Pulse Rate 83 73 Respiratory Rate 18 Blood Pressure 130/85 Pulse Oximetry 98 Intake & Output 02/10/18 02/11/18 02/11/18 18:59 06:59 18:59 Intake Total 100 / 100 1100 / 1100 Output Total 300 / 300 Balance -200 / -200 1100 / 1100 Weight 69.4 kg Intake: IV 100 / 100 1100 / 1100 NS Inj 1,000 ML @ 100 mls/hr IV 1000 / 1000 .CONT .Q10H [facility] Rx#:[id number] Levaquin 500 mg Premix Inj 500 100 / 100 mg In 100 ml @ 100 mls/hr IV. SIG Q24H [facility] Rx#:[id number] Flagyl 500 MG Inj 100 ML @ 100 100 / 100 mls/hr IV.SIG Q8H [facility] Rx#: [id number] Output: Urine 200 / 200 Gastric Drainage 100 / 100 Pre-Hospital Right Nare 100 / 100 Other: Weight On Admission 69.4 kg Narrative: GENERAL: No acute distress. SKIN: Warm and dry. HEAD: Atraumatic. Normocephalic. EYES: Pupils equal and round. No scleral icterus. No injection or drainage. ENT: No nasal bleeding or discharge. Mucous membranes pink and moist. NGT in place. NECK: Trachea midline. CARDIOVASCULAR: Regular rate and rhythm. RESPIRATORY: No accessory muscle use. Clear to auscultation. Breath sounds equal bilaterally. GASTROINTESTINAL: Abdomen soft, mildly distended. Tender to palpation. No bowel sounds appreciated. MUSCULOSKELETAL: Extremities without clubbing, cyanosis, or edema. No obvious deformities. NEUROLOGICAL: Awake and alert. No obvious cranial nerve deficits. Motor grossly within normal limits. Five out of 5 muscle strength in the arms and legs. Normal speech. PSYCHIATRIC: Appropriate mood and affect; insight and judgment normal. Results - Labs Laboratory Results - last 24 hr 02/11/18 02/11/18 05:00 11:01 POC Glucose 100 97 - Imaging Impressions Abdomen X-Ray 02/11/18 00:00 CONCLUSION: 1. Mildly dilated air-filled loop of small bowel within the left abdomen suggesting mild ileus or partial small bowel obstruction. Clinical correlation is recommended. Assessment and Plan - Plan Mrs. Hernadez is a pleasant 72-year-old female with a history of PE/DVT in 1998 followed by 1 year of anticoagulation, right breast cancer, hyperlipidemia , and ovarian adenocarcinoma with recent exploratory laparotomy with ARI and BSO and resection of bilateral ovarian masses on 01/31/[address] Jones who was admitted to [facility] for management of small bowel obstruction and bilateral pneumonia on February 07. The patient has been transferred to [facility] under the hospitalist service for further evaluation and management. Small bowel obstruction -noted on imaging at [facility] -Consult general surgery -appreciate assistance -Continue n.p.o. status with NG tube to low intermittent wall suction -KUB 10/5 with mild ileus or partial SBO. -Dilaudid 0.5 mg IV every 4 hours as needed for pain -Zofran PRN nausea/vomiting Bilateral pneumonia, lower lobes -noted on imaging at [facility] -Continue Levaquin as previously ordered Mild colitis -noted on imaging at [facility] -Continue metronidazole Hyperlipidemia -Holding atorvastatin at this time given n.p.o. status DVT prophylaxis -Chemoprophylaxis on hold pending general surgery evaluation -Bilateral SCDs
[2018-02-11] MEDS ORDERED: Bisacodyl 10 MG Supp RECTAL ONE (13:20)
[2018-02-11] MEDS: Polyethylene Glycol 3350 17 GM Packet PO SCH (18:05)
[2018-02-12] MEDS: Famotidine PF Inj 20 MG/2 ML Vial IV.PUSH SCH ×2 (09:10→20:40)
[2018-02-12] MEDS: Levofloxacin 500 mg Premix Inj 500 MG/100 ML PIGGYBACK IV.SIG SCH (09:10)
[2018-02-12] MEDS: Polyethylene Glycol 3350 17 GM Packet PO SCH (09:10)
[2018-02-12] MEDS: HYDROmorphone PF Inj 2 MG/ML Vial IV.PUSH PRN ×2 (10:27→20:40)
[2018-02-12 13:02] LABS: Baso % (Auto) 0.4 % (0.0-2.0); Eos # (Auto) 0.1 th/mm3 (0.0-0.4); Eos % (Auto) 1.1 % (0.0-4.0); Hematocrit 34.3 % (35.0-46.0); Hemoglobin 11.5 gm/dL (11.6-15.3); Lymph % (Auto) 11.5 % (9.0-44.0); Mean Corpuscular HGB Conc 33.5 % (32.0-36.0); Mean Corpuscular Hemoglobin 28.6 pg (27.0-34.0); Mean Corpuscular Volume 85.3 fL (80.0-100.0); Mean Platelet Volume 7.6 fL (7.0-11.0); Mono # (Auto) 0.9 th/mm3 (0.0-0.9); Mono % (Auto) 10.4 % (0.0-8.0); Neut # (Auto) 6.8 th/mm3 (1.8-7.7); Neut % (Auto) 76.6 % (16.0-70.0); Platelet Count 374 th/mm3 (150-450); Red Blood Count 4.02 mil/mm3 (4.00-5.30); Red Cell Distribution Width 14.1 % (11.6-17.2); White Blood Count 8.8 th/mm3 (4.0-11.0)
[2018-02-12 13:25] LABS: Alanine Aminotransferase 20 U/L (10-53); Albumin 2.2 g/dL (3.4-5.0); Alkaline Phosphatase 54 U/L (45-117); Anion Gap 10 meq/L (5-15); Aspartate Aminotransferase 22 U/L (15-37); Blood Urea Nitrogen 9 mg/dL (7-18); Calcium 7.4 mg/dL (8.5-10.1); Carbon Dioxide 26.7 meq/L (21.0-32.0); Chloride 102 meq/L (98-107); Glomerular Filtration Rate Greater Than 89 mL/min (>89); Glucose,Random 87 mg/dL (74-106); Potassium 3.4 meq/L (3.5-5.1); Sodium 139 meq/L (136-145); Total Protein 6.1 g/dL (6.4-8.2)
[2018-02-12] MEDS ORDERED: Potassium Chlor 20 mEq Premix 20 MEQ/100 ML PIGGYBACK IV.SIG ONE (14:14)
[2018-02-12] MEDS ORDERED: Calcium Chloride Inj 2 GM in Dextrose 5% in Water Inj 100 ML IV.SIG ONE ×2 (15:00)
--- NOTE | 2018-02-12 15:15 | P.PNGS ---
Subjective Patient reports: feels better, flatus, bowel movement Interval history: DAILY PROGRESS NOTE FOR SURGICAL ATTENDING, DR. DONOVAN MELGAR Patient feels better Had a large bowel movement unfortunately while she was ambulating in the hallway. Tolerating liquids She would like more food She does not want NG tube tube pulled until she can tolerate diet Physical Exam Vital signs: Vital Signs 02/11/18 16:00 02/11/18 18:59 02/11/18 20:00 Temperature 97.9 F 97.8 F Pulse Rate 87 83 Respiratory Rate 18 18 18 Blood Pressure 137/91 H 162/80 H Pulse Oximetry 95 94 L 02/11/18 20:01 02/12/18 00:00 02/12/18 00:05 Temperature 98.0 F Pulse Rate 73 71 65 Respiratory Rate 16 Blood Pressure 122/73 Pulse Oximetry 95 02/12/18 04:00 02/12/18 08:15 02/12/18 12:19 Temperature 98.0 F 97.7 F Pulse Rate 84 62 72 Respiratory Rate 18 16 Blood Pressure 121/79 115/76 Pulse Oximetry 94 L 99 02/12/18 13:57 Temperature Pulse Rate 68 Respiratory Rate Blood Pressure Pulse Oximetry Intake & Output 02/11/18 02/12/18 02/12/18 18:59 06:59 18:59 Intake Total 1580 / 1580 1400 / 1400 200 / 200 Output Total 1250 / 1250 1400 / 1400 Balance 330 / 330 0 / 0 200 / 200 Weight 69.3 kg Intake: IV 1100 / 1100 1400 / 1400 100 / 100 NS Inj 1,000 ML @ 100 mls/hr IV 1000 / 1000 1000 / 1000 .CONT .Q10H [facility] Rx#:[id number] Diflucan 200 mg Premix Bag 100 100 / 100 ML @ 100 mls/hr IV.SIG Q24H [facility] Rx#:[id number] Levaquin 500 mg Premix Inj 500 100 / 100 100 / 100 mg In 100 ml @ 100 mls/hr IV. SIG Q24H [facility] Rx#:[id number] Flagyl 500 MG Inj 100 ML @ 100 300 / 300 mls/hr IV.SIG Q8H [facility] Rx#: [id number] Oral 480 / 480 100 / 100 Output: Urine 1250 / 1250 1250 / 1250 Gastric Drainage 150 / 150 Right Nare 150 / 150 Other: # Voids 4 Date of Last Bowel Movement 02/11/18 02/11/18 02/12/18 # Bowel Movements 2 Narrative: GENERAL: 72 year old female sitting up resting in bed in no acute distress. SKIN: Warm and dry. HEAD: Atraumatic. Normocephalic. EYES: Pupils equal and round. No scleral icterus. No injection or drainage. ENT: No nasal bleeding or discharge. Mucous membranes pink and moist. NGT in place to LIWS to RIGHT nare. NECK: Trachea midline. CARDIOVASCULAR: Regular rate and rhythm. RESPIRATORY: No accessory muscle use. Clear to auscultation. Breath sounds equal bilaterally. GASTROINTESTINAL: Abdomen soft, mildly distended. Minimally tender. Well healing midline incision with Steri-Strips in place. MUSCULOSKELETAL: Extremities without clubbing, cyanosis, or edema. No obvious deformities. NEUROLOGICAL: Awake and alert. No obvious cranial nerve deficits. Motor grossly within normal limits. Five out of 5 muscle strength in the arms and legs. Normal speech. PSYCHIATRIC: Appropriate mood and affect; insight and judgment normal. Results - Labs 02/12/18 12:28 02/12/18 12:28 Laboratory Results - last 24 hr 02/12/18 02/12/18 12:28 12:28 WBC 8.8 RBC 4.02 Hgb 11.5 L Hct 34.3 L MCV 85.3 MCH 28.6 MCHC 33.5 RDW 14.1 Plt Count 374 D MPV 7.6 Neut % (Auto) 76.6 H Lymph % (Auto) 11.5 [place] % (Auto) 10.4 H Eos % (Auto) 1.1 Baso % (Auto) 0.4 Neut # (Auto) 6.8 Lymph # (Auto) 1.0 [place] # (Auto) 0.9 Eos # (Auto) 0.1 Baso # (Auto) 0.0 WBC Differential . Differential Comment Auto diff final Sodium 139 Potassium 3.4 L Chloride 102 Carbon Dioxide 26.7 Anion Gap 10 BUN 9 Creatinine 0.48 L Estimated GFR Greater than 89 Random Glucose 87 Calcium 7.4 L* Prot Corrected Calcium 7.9 L Total Bilirubin 0.5 AST 22 ALT 20 Alkaline Phosphatase 54 Total Protein 6.1 L Albumin 2.2 L - Imaging Imaging: ITS Impressions Abdomen X-Ray 02/11/18 00:00 CONCLUSION: 1. Mildly dilated air-filled loop of small bowel within the left abdomen suggesting mild ileus or partial small bowel obstruction. Clinical correlation is recommended. Assessment and Plan - Assessment (1) Ileus, postoperative Code(s): K91.89 - Other postprocedural complications and disorders of digestive system; K56.7 - Ileus, unspecified Status: Acute Plan: 72 year old female s/p ARI/BSO on Jan [address] Jones; now back with abdominal pain; nausea; vomiting; SBO vs ileus -Favor post operative ileus -IVF -KUB reviewed---contrast through to large intestine -Trial clamping NGT and sips of clears which she is tolerating well -Bowel regimen -OOB and mobilize - -Advance diet to regular if she tolerates diet then pull NG tube - Attending Attestation NOTE FOR SURGICAL ATTENDING, DR. DONOVAN MELGAR I attest that I had a [id number] encounter with the patient on the same day, and personally performed and documented my assessment and findings in the medical record. The following services were provided during this hospital visit: Chart data review, vital sign assessments/reviewing monitor data Review of consultations notes if present. Medication orders/review and/or management Ordering and/or reviewing lab tests Ordering and/or interpreting/reviewing x-rays and/or diagnostic studies Care of the patient and discussion of the patient with the care team Documentation time To help prompt me to consider important information that might be impacting today's encounter and assessment, Information from prior notes written by myself or my colleagues may have been "brought forward/copy and pasted" into today's note.
--- NOTE | 2018-02-12 15:16 | P.PNIM ---
Subjective Interval history: The patient has been ambulating. She has been having bowel movements. She has been passing gas. She has slowly been tolerating a clear liquid diet. She has not been nauseous. Discussed with nursing and family. Physical Exam Vital signs: Vital Signs 02/11/18 16:00 02/11/18 18:59 02/11/18 20:00 Temperature 97.9 F 97.8 F Pulse Rate 87 83 Respiratory Rate 18 18 18 Blood Pressure 137/91 H 162/80 H Pulse Oximetry 95 94 L 02/11/18 20:01 02/12/18 00:00 02/12/18 00:05 Temperature 98.0 F Pulse Rate 73 71 65 Respiratory Rate 16 Blood Pressure 122/73 Pulse Oximetry 95 02/12/18 04:00 02/12/18 08:15 02/12/18 12:19 Temperature 98.0 F 97.7 F Pulse Rate 84 62 72 Respiratory Rate 18 16 Blood Pressure 121/79 115/76 Pulse Oximetry 94 L 99 02/12/18 13:57 Temperature Pulse Rate 68 Respiratory Rate Blood Pressure Pulse Oximetry Intake & Output 02/11/18 02/12/18 02/12/18 18:59 06:59 18:59 Intake Total 1580 / 1580 1400 / 1400 200 / 200 Output Total 1250 / 1250 1400 / 1400 Balance 330 / 330 0 / 0 200 / 200 Weight 69.3 kg Intake: IV 1100 / 1100 1400 / 1400 100 / 100 NS Inj 1,000 ML @ 100 mls/hr IV 1000 / 1000 1000 / 1000 .CONT .Q10H [facility] Rx#:[id number] Diflucan 200 mg Premix Bag 100 100 / 100 ML @ 100 mls/hr IV.SIG Q24H [facility] Rx#:[id number] Levaquin 500 mg Premix Inj 500 100 / 100 100 / 100 mg In 100 ml @ 100 mls/hr IV. SIG Q24H [facility] Rx#:[id number] Flagyl 500 MG Inj 100 ML @ 100 300 / 300 mls/hr IV.SIG Q8H [facility] Rx#: [id number] Oral 480 / 480 100 / 100 Output: Urine 1250 / 1250 1250 / 1250 Gastric Drainage 150 / 150 Right Nare 150 / 150 Other: # Voids 4 Date of Last Bowel Movement 02/11/18 02/11/18 02/12/18 # Bowel Movements 2 Narrative: GENERAL: No distress. SKIN: Warm and dry. HEAD: Atraumatic. Normocephalic. EYES: Pupils equal and round. No scleral icterus. No injection or drainage. ENT: No nasal bleeding or discharge. Mucous membranes pink and moist. NGT in place. NECK: Trachea midline. CARDIOVASCULAR: Regular rate and rhythm. RESPIRATORY: No accessory muscle use. Clear to auscultation. Breath sounds equal bilaterally. GASTROINTESTINAL: Abdomen soft, mildly distended. Nontender. MUSCULOSKELETAL: Extremities without clubbing, cyanosis, or edema. No obvious deformities. NEUROLOGICAL: Awake and alert. No obvious cranial nerve deficits. Motor grossly within normal limits. Five out of 5 muscle strength in the arms and legs. Normal speech. PSYCHIATRIC: Appropriate mood and affect; insight and judgment normal. Results - Labs CBC & Chem 7: 02/12/18 12:28 02/12/18 12:28 Laboratory Results - last 24 hr 02/12/18 02/12/18 12:28 12:28 WBC 8.8 RBC 4.02 Hgb 11.5 L Hct 34.3 L MCV 85.3 MCH 28.6 MCHC 33.5 RDW 14.1 Plt Count 374 D MPV 7.6 Neut % (Auto) 76.6 H Lymph % (Auto) 11.5 Jones % (Auto) 10.4 H Eos % (Auto) 1.1 Baso % (Auto) 0.4 Neut # (Auto) 6.8 Lymph # (Auto) 1.0 Jones # (Auto) 0.9 Eos # (Auto) 0.1 Baso # (Auto) 0.0 WBC Differential . Differential Comment Auto diff final Sodium 139 Potassium 3.4 L Chloride 102 Carbon Dioxide 26.7 Anion Gap 10 BUN 9 Creatinine 0.48 L Estimated GFR Greater than 89 Random Glucose 87 Calcium 7.4 L* Prot Corrected Calcium 7.9 L Total Bilirubin 0.5 AST 22 ALT 20 Alkaline Phosphatase 54 Total Protein 6.1 L Albumin 2.2 L Assessment and Plan - Plan Mrs. Hernadez is a pleasant 72-year-old female with a history of PE/DVT in 1998 followed by 1 year of anticoagulation, right breast cancer, hyperlipidemia , and ovarian adenocarcinoma with recent exploratory laparotomy with ARI and BSO and resection of bilateral ovarian masses on 01/31/[address] Jones who was admitted to [facility] for management of small bowel obstruction and bilateral pneumonia on February 07. The patient has been transferred to [facility] under the hospitalist service for further evaluation and management. Small bowel obstruction -noted on imaging at [facility] -Consult general surgery -appreciate assistance -clear liquid diet per surgery. NGT still in place. -KUB 10/5 with mild ileus or partial SBO. On bowel regimen and having bowel movements. -Dilaudid 0.5 mg IV every 4 hours as needed for pain. -Zofran PRN nausea/vomiting. Bilateral pneumonia, lower lobes -noted on imaging at [facility] -Continue Levaquin as previously ordered. -oxygen and nebs as needed. Mild colitis -noted on imaging at [facility] -Continue metronidazole. Hypokalemia S/t decreased PO intake. -replete IV and monitor. DVT prophylaxis: Bilateral SCDs
[2018-02-12] MEDS: Sod Chloride 0.9% Inj 1,000 ML IV.CONT SCH ×2 (17:07→17:09)
[2018-02-13] MEDS: HYDROmorphone PF Inj 2 MG/ML Vial IV.PUSH PRN ×2 (05:15→10:29)
[2018-02-13 07:34] LABS: Anion Gap 10 meq/L (5-15); Blood Urea Nitrogen 5 mg/dL (7-18); Calcium 7.9 mg/dL (8.5-10.1); Carbon Dioxide 25.5 meq/L (21.0-32.0); Chloride 103 meq/L (98-107); Glomerular Filtration Rate Greater Than 89 mL/min (>89); Glucose,Random 92 mg/dL (74-106); Magnesium 1.6 mg/dL (1.5-2.5); Potassium 3.4 meq/L (3.5-5.1); Sodium 138 meq/L (136-145)
[2018-02-13 07:36] LABS: Phosphorus 2.2 mg/dL (2.5-4.9)
[2018-02-13] MEDS: Levofloxacin 500 mg Premix Inj 500 MG/100 ML PIGGYBACK IV.SIG SCH (08:54)
[2018-02-13] MEDS: Polyethylene Glycol 3350 17 GM Packet PO SCH (08:55)
[2018-02-13] MEDS: Famotidine PF Inj 20 MG/2 ML Vial IV.PUSH SCH ×2 (08:55→20:54)
--- NOTE | 2018-02-13 11:35 | P.PNIM ---
Subjective Interval history: The patient endorsed an episode of vomiting this morning. She did have some abdominal pain at the time. Otherwise she tolerated her broth last night and this morning. She has been ambulatory. Discussed with family. Physical Exam Vital signs: Vital Signs 02/12/18 12:19 02/12/18 13:57 02/12/18 18:00 Temperature 97.7 F 97.9 F Pulse Rate 72 68 69 Respiratory Rate 16 16 Blood Pressure 115/76 131/78 Pulse Oximetry 99 98 02/12/18 20:00 02/13/18 00:00 02/13/18 04:00 Temperature 97.7 F 97.6 F 97.5 F L Pulse Rate 79 52 L 61 Respiratory Rate 16 16 15 Blood Pressure 145/87 H 116/72 116/73 Pulse Oximetry 96 95 95 02/13/18 07:35 02/13/18 08:50 Temperature 96.5 F L Pulse Rate 57 L 76 Respiratory Rate Blood Pressure 117/68 Pulse Oximetry 95 Intake & Output 02/12/18 02/13/18 02/13/18 18:59 06:59 18:59 Intake Total 1300 / 1300 740 / 740 Balance 1300 / 1300 740 / 740 Weight 69.2 kg Intake: IV 1200 / 1200 620 / 620 NS Inj 1,000 ML @ 100 mls/hr IV 1000 / 1000 100 / 100 .CONT .Q10H [facility] Rx#:[id number] Calcium Chloride Inj 2 GM In 120 / 120 D5W Inj 100 ML @ 120 mls/hr IV. SIG ONCE ONE Rx#:[id number] Diflucan 200 mg Premix Bag 100 100 / 100 ML @ 100 mls/hr IV.SIG Q24H [facility] Rx#:[id number] Levaquin 500 mg Premix Inj 500 100 / 100 mg In 100 ml @ 100 mls/hr IV. SIG Q24H [facility] Rx#:[id number] KCl 20 mEq Premix Inj 20 meq In 100 / 100 100 ml @ 50 mls/hr IV.SIG ONCE ONE Rx#:[id number] Flagyl 500 MG Inj 100 ML @ 100 100 / 100 200 / 200 mls/hr IV.SIG Q8HR [facility] Rx#: [id number] Oral 100 / 100 120 / 120 Other: # Voids 4 2 Date of Last Bowel Movement 02/12/18 02/12/18 # Bowel Movements 2 1 Narrative: GENERAL: No distress. SKIN: Warm and dry. HEAD: Atraumatic. Normocephalic. EYES: Pupils equal and round. No scleral icterus. No injection or drainage. ENT: No nasal bleeding or discharge. Mucous membranes pink and moist. NGT in place. NECK: Trachea midline. CARDIOVASCULAR: Regular rate and rhythm. RESPIRATORY: No accessory muscle use. Clear to auscultation. Breath sounds equal bilaterally. GASTROINTESTINAL: Abdomen soft, mildly distended, mildly tender. Decreased breath sounds. MUSCULOSKELETAL: Extremities without clubbing, cyanosis, or edema. No obvious deformities. NEUROLOGICAL: Awake and alert. No obvious cranial nerve deficits. Motor grossly within normal limits. Five out of 5 muscle strength in the arms and legs. Normal speech. PSYCHIATRIC: Appropriate mood and affect; insight and judgment normal. Results - Labs CBC & Chem 7: 02/12/18 12:28 02/13/18 06:44 Laboratory Results - last 24 hr 02/12/18 02/12/18 02/13/18 12:28 12:28 06:44 WBC 8.8 RBC 4.02 Hgb 11.5 L Hct 34.3 L MCV 85.3 MCH 28.6 MCHC 33.5 RDW 14.1 Plt Count 374 D MPV 7.6 Neut % (Auto) 76.6 H Lymph % (Auto) 11.5 [place] % (Auto) 10.4 H Eos % (Auto) 1.1 Baso % (Auto) 0.4 Neut # (Auto) 6.8 Lymph # (Auto) 1.0 [place] # (Auto) 0.9 Eos # (Auto) 0.1 Baso # (Auto) 0.0 WBC Differential . Differential Comment Auto diff final Sodium 139 138 Potassium 3.4 L 3.4 L Chloride 102 103 Carbon Dioxide 26.7 25.5 Anion Gap 10 10 BUN 9 5 L Creatinine 0.48 L 0.50 Estimated GFR Greater than 89 Greater than 89 Random Glucose 87 92 Calcium 7.4 L* 7.9 L Prot Corrected Calcium 7.9 L Phosphorus 2.2 L Magnesium 1.6 Total Bilirubin 0.5 AST 22 ALT 20 Alkaline Phosphatase 54 Total Protein 6.1 L Albumin 2.2 L Assessment and Plan - Plan Mrs. Hernadez is a pleasant 72-year-old female with a history of PE/DVT in 1998 followed by 1 year of anticoagulation, right breast cancer, hyperlipidemia , and ovarian adenocarcinoma with recent exploratory laparotomy with ARI and BSO and resection of bilateral ovarian masses on 01/31/[address] Jones who was admitted to [facility] for management of small bowel obstruction and bilateral pneumonia on February 07. The patient has been transferred to [facility] under the hospitalist service for further evaluation and management. Small bowel obstruction General surgery consult appreciated. -clear liquid diet per surgery. NGT still in place. -KUB 10/ with mild ileus or partial SBO. On bowel regimen and having bowel movements. Had emesis 02/13. Repeat KUB. -Dilaudid 0.5 mg IV every 4 hours as needed for pain. -Zofran PRN nausea/vomiting. Bilateral pneumonia, lower lobes Noted on imaging at [facility]. -Continue Levaquin as previously ordered. -oxygen and nebs as needed. Mild colitis Noted on imaging at [facility]. -Continue metronidazole. Hypokalemia S/t decreased PO intake. -replete IV and monitor. DVT prophylaxis: Bilateral SCDs
[2018-02-13] MEDS ORDERED: Potassium Chlor 20 mEq Premix 20 MEQ/100 ML PIGGYBACK IV.SIG ONE (12:30)
--- NOTE | 2018-02-13 13:10 | XR ---
EXAM DATE: 02/13/2018 12:00 AM EDT AGE/SEX: 72 years / Female INDICATIONS: Ileus. CLINICAL DATA: This is the patient's initial encounter. Patient reports that signs and symptoms have been present for 3 days and indicates a pain score of 2/10. MEDICAL/SURGICAL HISTORY: . Hypercholesterolemia. Carcinoma, breast. . Hypercholesterolemia. C arcinoma, breast. Hysterectomy. COMPARISON: C, ABDOMEN 1V KUB, 02/11/2018. . FINDINGS: Today's exam is compared to the prior study. There is an NG tube in the stomach. There is no abnorma l dilatation of the large or small bowel. There continues to be some residual contrast seen in the co telly. However, this is moderately improved compared to the prior examination. The lung bases are gross ly clear. There is no evidence of free air. The bony structures are stable. CONCLUSION: 1. The bowel gas pattern is within normal limits. 2. NG tube in stomach. Electronically signed by: Ceferino Jones MD 02/13/2018 1:08 PM EDT
[2018-02-13] MEDS: Ketorolac Inj 30 MG/ML (IVP) Vial IV.PUSH SCH ×2 (14:42→20:54)
[2018-02-13] MEDS: Sod Chloride 0.9% Inj 1,000 ML IV.CONT SCH ×2 (15:14→15:18)
--- NOTE | 2018-02-13 15:47 | P.PN ---
Subjective Interval history: Minimal nausea/emesis after getting dilaudid; it has been held. Physical Exam Vital signs: Vital Signs 02/12/18 18:00 02/12/18 20:00 02/13/18 00:00 Temperature 97.9 F 97.7 F 97.6 F Pulse Rate 69 79 52 L Respiratory Rate 16 16 16 Blood Pressure 131/78 145/87 H 116/72 Pulse Oximetry 98 96 95 02/13/18 04:00 02/13/18 07:35 02/13/18 08:50 Temperature 97.5 F L 96.5 F L Pulse Rate 61 57 L 76 Respiratory Rate 15 Blood Pressure 116/73 117/68 Pulse Oximetry 95 95 Intake & Output 02/12/18 02/13/18 02/13/18 18:59 06:59 18:59 Intake Total 1300 / 1300 740 / 740 1200 / 1200 Output Total 100 / 100 Balance 1300 / 1300 740 / 740 1100 / 1100 Weight 69.2 kg Intake: IV 1200 / 1200 620 / 620 1200 / 1200 NS Inj 1,000 ML @ 100 mls/hr IV 1000 / 1000 100 / 100 1000 / 1000 .CONT .Q10H [facility] Rx#:[id number] Calcium Chloride Inj 2 GM In 120 / 120 D5W Inj 100 ML @ 120 mls/hr IV. SIG ONCE ONE Rx#:[id number] Diflucan 200 mg Premix Bag 100 100 / 100 ML @ 100 mls/hr IV.SIG Q24H [facility] Rx#:[id number] Levaquin 500 mg Premix Inj 500 100 / 100 100 / 100 mg In 100 ml @ 100 mls/hr IV. SIG Q24H [facility] Rx#:[id number] KCl 20 mEq Premix Inj 20 meq In 100 / 100 100 / 100 100 ml @ 50 mls/hr IV.SIG ONCE ONE Rx#:[id number] Flagyl 500 MG Inj 100 ML @ 100 100 / 100 200 / 200 mls/hr IV.SIG Q8HR [facility] Rx#: [id number] Oral 100 / 100 120 / 120 Output: Emesis 100 / 100 Other: # Voids 4 2 Date of Last Bowel Movement 02/12/18 02/12/18 # Bowel Movements 2 1 # Emeses 1 - Routine Abdominal Exam Present: soft, wound (steri-strips clean) Comments: Abdomen soft and nondistended Results - Labs CBC & Chem 7: 02/12/18 12:28 02/13/18 06:44 Laboratory Results - last 24 hr 02/13/18 06:44 Sodium 138 Potassium 3.4 L Chloride 103 Carbon Dioxide 25.5 Anion Gap 10 BUN 5 L Creatinine 0.50 Estimated GFR Greater than 89 Random Glucose 92 Calcium 7.9 L Phosphorus 2.2 L Magnesium 1.6 - Imaging Impressions Abdomen X-Ray 02/13/18 00:00 CONCLUSION: 1. The bowel gas pattern is within normal limits. 2. NG tube in stomach. Assessment and Plan - Assessment (1) Ileus, postoperative Code(s): K91.89 - Other postprocedural complications and disorders of digestive system; K56.7 - Ileus, unspecified Status: Acute Plan: Resolved Remove NG tube; start liquids in AM - Plan Discussed Condition With: Patient Nurse - Attending Attestation I attest that I had a [id number] encounter with the patient on the same day, and personally performed and documented my assessment and findings in the medical record. The following services were provided during this hospital visit: Chart data review, vital sign assessments/reviewing monitor data Review of consultation notes if present Medication orders/review and/or management Ordering and/or reviewing lab tests Ordering and/or interpreting/reviewing x-rays and/or diagnostic studies Care of the patient and discussion of the patient with the care team Documentation time To help prompt me to consider important information that might be impacting today's encounter and assessment, Information from prior notes written by myself or my colleagues may have been "brought forward/copy and pasted" into today's note.
[2018-02-14] MEDS: Sod Chloride 0.9% Inj 1,000 ML IV.CONT SCH ×2 (00:55→14:04)
[2018-02-14] MEDS: Ketorolac Inj 30 MG/ML (IVP) Vial IV.PUSH SCH ×4 (00:55→18:50)
[2018-02-14 06:57] LABS: Anion Gap 9 meq/L (5-15); Blood Urea Nitrogen 4 mg/dL (7-18); Calcium 7.4 mg/dL (8.5-10.1); Carbon Dioxide 27.7 meq/L (21.0-32.0); Chloride 104 meq/L (98-107); Glomerular Filtration Rate Greater Than 89 mL/min (>89); Glucose,Random 98 mg/dL (74-106); Magnesium 1.8 mg/dL (1.5-2.5); Phosphorus 1.9 mg/dL (2.5-4.9); Potassium 3.1 meq/L (3.5-5.1); Sodium 141 meq/L (136-145)
[2018-02-14 07:17] LABS: Total Protein 5.5 g/dL (6.4-8.2)
--- NOTE | 2018-02-14 08:08 | P.PNGS ---
Subjective Patient reports: no new complaints, feels better, flatus, bowel movement Interval history: DAILY PROGRESS NOTE FOR SURGICAL ATTENDING, DR. DONOVAN MELGAR Doing much better Glad to have NGT out Hungry Tired of chicken broth Physical Exam Vital signs: Vital Signs 02/13/18 08:50 02/13/18 12:00 02/13/18 16:00 Temperature 96.5 F L 98.6 F 98.3 F Pulse Rate 76 78 69 Respiratory Rate 16 18 Blood Pressure 117/68 111/68 121/72 Pulse Oximetry 95 97 02/13/18 20:00 02/14/18 00:00 02/14/18 04:00 Temperature 98.2 F 97 F L 97.5 F L Pulse Rate 72 64 67 Respiratory Rate 16 16 16 Blood Pressure 110/68 122/77 122/73 Pulse Oximetry 97 98 97 Intake & Output 02/13/18 02/14/18 02/14/18 18:59 06:59 18:59 Intake Total 1300 / 1300 1540 / 1540 Output Total 100 / 100 2350 / 2350 Balance 1200 / 1200 -810 / -810 Weight 70.9 kg Intake: IV 1300 / 1300 1300 / 1300 NS Inj 1,000 ML @ 100 mls/hr IV 1000 / 1000 1000 / 1000 .CONT .Q10H [facility] Rx#:[id number] Diflucan 200 mg Premix Bag 100 100 / 100 ML @ 100 mls/hr IV.SIG Q24H [facility] Rx#:[id number] Levaquin 500 mg Premix Inj 500 100 / 100 mg In 100 ml @ 100 mls/hr IV. SIG Q24H [facility] Rx#:[id number] KCl 20 mEq Premix Inj 20 meq In 100 / 100 100 ml @ 50 mls/hr IV.SIG ONCE ONE Rx#:[id number] Flagyl 500 MG Inj 100 ML @ 100 100 / 100 200 / 200 mls/hr IV.SIG Q8HR [facility] Rx#: [id number] Oral 240 / 240 Output: Urine 2350 / 2350 Emesis 100 / 100 Other: Date of Last Bowel Movement 02/13/18 # Bowel Movements 1 # Emeses 1 Narrative: Alert and awake Abd: soft minimally tender; incision with Steri Strips in place Results - Labs 02/12/18 12:28 02/14/18 06:02 Laboratory Results - last 24 hr 02/14/18 06:02 Sodium 141 Potassium 3.1 L Chloride 104 Carbon Dioxide 27.7 Anion Gap 9 BUN 4 L Creatinine 0.49 L Estimated GFR Greater than 89 Random Glucose 98 Calcium 7.4 L* Prot Corrected Calcium 8.3 L Phosphorus 1.9 L Magnesium 1.8 Total Protein 5.5 L D - Imaging Imaging: ITS Impressions Abdomen X-Ray 02/13/18 00:00 CONCLUSION: 1. The bowel gas pattern is within normal limits. 2. NG tube in stomach. Abdominal x-ray: image reviewed Assessment and Plan - Assessment (1) Ileus, postoperative Code(s): K91.89 - Other postprocedural complications and disorders of digestive system; K56.7 - Ileus, unspecified Status: Acute Plan: 72 year old female s/p ARI/BSO on Jan [address] Jones; now back with abdominal pain; nausea; vomiting; SBO vs ileus -Favor post operative ileus -Advance to regular diet -Continue to be OOB and mobilize -+BM -Discussed with ALEJANDRA Merrill -Continue non operative treatment - Attending Attestation NOTE FOR SURGICAL ATTENDING, DR. DONOVAN MELGAR I agree with above assessment and plan. The exam, history, and the medical decision-making described in the above note were completed with the assistance of the mid-level provider. I reviewed and agree with the findings presented. I attest that I had a ijnw-da-jvja encounter with the patient on the same day, and personally performed and documented my assessment and findings in the medical record. The following services were provided during this hospital visit: Chart data review, vital sign assessments/reviewing monitor data Review of consultations notes if present. Medication orders/review and/or management Ordering and/or reviewing lab tests Ordering and/or interpreting/reviewing x-rays and/or diagnostic studies Care of the patient and discussion of the patient with the care team Documentation time To help prompt me to consider important information that might be impacting today's encounter and assessment, Information from prior notes written by myself or my colleagues may have been "brought forward/copy and pasted" into today's note.
[2018-02-14] MEDS: Levofloxacin 500 mg Premix Inj 500 MG/100 ML PIGGYBACK IV.SIG SCH (09:27)
--- NOTE | 2018-02-14 11:33 | P.DIET ---
Nutritional Evaluation Type of nutrition evaluation: initial Nutrition screening: Weight Loss > 10 lbs Subjective Subjective Comments: Reports weight loss d/t N/V related to ileus. She is now "hungry". Objective - Diagnosis Pelvic Mass - Objective % IBW: 130 (IBW = 120#) Body Weight Used for Calculations: Upper end of IBW (60 kg) Energy Needs - Lower Range (kCal/kg): 25 Energy Needs - Upper Range (kCal/kg): 30 Lower Limit kCal/kg (kCals): 1,500 Upper Limit kCal/kg (kCals): 1,800 Lower Limit Protein Factor (Grams per Kg): 1.0 Upper Limit Protein Factor (Grams per Kg): 1.5 Lower Protein Needs (Protein): 60 Upper Protein Needs (Protein): 90 Fluid Factor (ml/kg): 30 Estimated Fluid Needs (ml): 1,800 Dietitian Reviewed in Medical Record: Current diet, Curent medications, Intake & Output, Labs, Medical history Diet Order: Regular Assessment Assessment: Pt is s/p exp lap, ARI, resection of B ovarian masses, lysis of adhesions, B salpingo oophorectomy, omentectomy and peritoneal biopsies (01/31), ng-t now removed and just advanced to regular. RD wll monitor po intake and assess for the need of supplements. Recommendations: Diet as ordered. RD following Dietitian to Monitor: Lab values, Intake & Output, Diet tolerance, Weight change , PO Intake, Medical course
--- NOTE | 2018-02-14 12:02 | P.PN ---
Subjective Interval history: No new c/o. n/v after dilaudid which has been d/c'd yesterday ngt out, tolerating liquids loose bms, flatus, no n/v today ambulating without difficulty Findings as discussed with Samantha Hernadez via phone yesterday, and as per visit on rounds today Physical Exam Vital signs: Vital Signs 02/13/18 12:00 02/13/18 16:00 02/13/18 20:00 Temperature 98.6 F 98.3 F 98.2 F Pulse Rate 78 69 72 Respiratory Rate 16 18 16 Blood Pressure 111/68 121/72 110/68 Pulse Oximetry 97 97 02/14/18 00:00 02/14/18 04:00 02/14/18 08:00 Temperature 97 F L 97.5 F L 97.5 F L Pulse Rate 64 67 76 Respiratory Rate 16 16 18 Blood Pressure 122/77 122/73 109/66 Pulse Oximetry 98 97 99 Intake & Output 02/13/18 02/14/18 02/14/18 18:59 06:59 18:59 Intake Total 1300 / 1300 1540 / 1540 Output Total 100 / 100 2350 / 2350 Balance 1200 / 1200 -810 / -810 Weight 70.9 kg Intake: IV 1300 / 1300 1300 / 1300 NS Inj 1,000 ML @ 100 mls/hr IV 1000 / 1000 1000 / 1000 .CONT .Q10H [facility] Rx#:[id number] Diflucan 200 mg Premix Bag 100 100 / 100 ML @ 100 mls/hr IV.SIG Q24H [facility] Rx#:[id number] Levaquin 500 mg Premix Inj 500 100 / 100 mg In 100 ml @ 100 mls/hr IV. SIG Q24H [facility] Rx#:[id number] KCl 20 mEq Premix Inj 20 meq In 100 / 100 100 ml @ 50 mls/hr IV.SIG ONCE ONE Rx#:[id number] Flagyl 500 MG Inj 100 ML @ 100 100 / 100 200 / 200 mls/hr IV.SIG Q8HR [facility] Rx#: [id number] Oral 240 / 240 Output: Urine 2350 / 2350 Emesis 100 / 100 Other: Date of Last Bowel Movement 02/13/18 # Bowel Movements 1 # Emeses 1 - Constitutional no acute distress - Routine HEENT Exam Head: Present: normocephalic Eye: Present: EOMI ENT: Present: mucous membranes moist - Routine Abdominal Exam Present: soft (non-tender, incision healing well, uimproved bowel sounds) - Routine Neurological Exam Present: alert, oriented X3 - Routine Psychiatric Exam Present: normal affect Results - Labs CBC & Chem 7: 02/12/18 12:28 02/14/18 06:02 Laboratory Results - last 24 hr 02/14/18 06:02 Sodium 141 Potassium 3.1 L Chloride 104 Carbon Dioxide 27.7 Anion Gap 9 BUN 4 L Creatinine 0.49 L Estimated GFR Greater than 89 Random Glucose 98 Calcium 7.4 L* Prot Corrected Calcium 8.3 L Phosphorus 1.9 L Magnesium 1.8 Total Protein 5.5 L D - Imaging Impressions Abdomen X-Ray 02/13/18 00:00 CONCLUSION: 1. The bowel gas pattern is within normal limits. 2. NG tube in stomach. Assessment and Plan - Plan hd#5 post-op ileus markedly improved/resolved KUB wnl, return of bowel function, tolerating oral intake cpm, adat, work toward discharge as she progresses to & tolerates regular diet. discussion, q&a
[2018-02-14] MEDS: Famotidine PF Inj 20 MG/2 ML Vial IV.PUSH SCH ×2 (12:52→21:29)
[2018-02-14] MEDS: Polyethylene Glycol 3350 17 GM Packet PO SCH (12:57)
--- NOTE | 2018-02-14 14:03 | P.PNIM ---
Subjective Interval history: The patient was tolerating a regular diet. She was no longer nauseous. She was hoping to go home tomorrow. Family at the bedside. No acute concerns. Physical Exam Vital signs: Vital Signs 02/13/18 16:00 02/13/18 20:00 02/14/18 00:00 Temperature 98.3 F 98.2 F 97 F L Pulse Rate 69 72 64 Respiratory Rate 18 16 16 Blood Pressure 121/72 110/68 122/77 Pulse Oximetry 97 97 98 02/14/18 04:00 02/14/18 08:00 02/14/18 12:00 Temperature 97.5 F L 97.5 F L 98.4 F Pulse Rate 67 76 78 Respiratory Rate 16 18 18 Blood Pressure 122/73 109/66 121/72 Pulse Oximetry 97 99 98 Intake & Output 02/13/18 02/14/18 02/14/18 18:59 06:59 18:59 Intake Total 1300 / 1300 1540 / 1540 Output Total 100 / 100 2350 / 2350 Balance 1200 / 1200 -810 / -810 Weight 70.9 kg Intake: IV 1300 / 1300 1300 / 1300 NS Inj 1,000 ML @ 100 mls/hr IV 1000 / 1000 1000 / 1000 .CONT .Q10H [facility] Rx#:[id number] Diflucan 200 mg Premix Bag 100 100 / 100 ML @ 100 mls/hr IV.SIG Q24H [facility] Rx#:[id number] Levaquin 500 mg Premix Inj 500 100 / 100 mg In 100 ml @ 100 mls/hr IV. SIG Q24H [facility] Rx#:[id number] KCl 20 mEq Premix Inj 20 meq In 100 / 100 100 ml @ 50 mls/hr IV.SIG ONCE ONE Rx#:[id number] Flagyl 500 MG Inj 100 ML @ 100 100 / 100 200 / 200 mls/hr IV.SIG Q8HR [facility] Rx#: [id number] Oral 240 / 240 Output: Urine 2350 / 2350 Emesis 100 / 100 Other: Date of Last Bowel Movement 02/13/18 # Bowel Movements 1 # Emeses 1 Narrative: GENERAL: No distress. SKIN: Warm and dry. HEAD: Atraumatic. Normocephalic. EYES: Pupils equal and round. No scleral icterus. No injection or drainage. ENT: No nasal bleeding or discharge. Mucous membranes pink and moist. NECK: Trachea midline. CARDIOVASCULAR: Regular rate and rhythm. RESPIRATORY: No accessory muscle use. Clear to auscultation. Breath sounds equal bilaterally. GASTROINTESTINAL: Abdomen soft, nondistended, mildly tender. MUSCULOSKELETAL: Extremities without clubbing, cyanosis, or edema. No obvious deformities. NEUROLOGICAL: Awake and alert. No obvious cranial nerve deficits. Motor grossly within normal limits. Five out of 5 muscle strength in the arms and legs. Normal speech. PSYCHIATRIC: Appropriate mood and affect; insight and judgment normal. Results - Labs CBC & Chem 7: 02/12/18 12:28 02/14/18 06:02 Laboratory Results - last 24 hr 02/14/18 06:02 Sodium 141 Potassium 3.1 L Chloride 104 Carbon Dioxide 27.7 Anion Gap 9 BUN 4 L Creatinine 0.49 L Estimated GFR Greater than 89 Random Glucose 98 Calcium 7.4 L* Prot Corrected Calcium 8.3 L Phosphorus 1.9 L Magnesium 1.8 Total Protein 5.5 L D Assessment and Plan - Plan Mrs. Hernadez is a pleasant 72-year-old female with a history of PE/DVT in 1998 followed by 1 year of anticoagulation, right breast cancer, hyperlipidemia , and ovarian adenocarcinoma with recent exploratory laparotomy with ARI and BSO and resection of bilateral ovarian masses on 01/31/[address] Jones who was admitted to [facility] for management of small bowel obstruction and bilateral pneumonia on February 07. The patient has been transferred to [facility] under the hospitalist service for further evaluation and management. Small bowel obstruction General surgery consult appreciated. Repeat KUB with resolution. NG tube has been removed. -Regular diet. -Zofran PRN nausea/vomiting. -Follow-up with surgery. Bilateral pneumonia, lower lobes/ Colitis, mild Noted on imaging at prior hospital. The patient has completed a course of antibiotics. -oxygen and nebs as needed. -Encourage ambulation. -Advance diet as tolerated. Hypokalemia/ Hypophosphatemia S/t decreased PO intake. -replete PO and monitor. DVT prophylaxis: Bilateral SCDs Discharge Planning: Discharge when cleared by surgery and when electrolytes have stabilized
[2018-02-14] MEDS: Potassium Phosphate 500 MG Soluble Tablet PO SCH ×2 (16:12→21:30)
[2018-02-15] MEDS: Ketorolac Inj 30 MG/ML (IVP) Vial IV.PUSH SCH ×2 (00:43→06:20)
[2018-02-15] MEDS: Sod Chloride 0.9% Inj 1,000 ML IV.CONT SCH (00:44)
[2018-02-15 07:13] LABS: Anion Gap 8 meq/L (5-15); Blood Urea Nitrogen 4 mg/dL (7-18); Calcium 7.7 mg/dL (8.5-10.1); Carbon Dioxide 24.6 meq/L (21.0-32.0); Chloride 107 meq/L (98-107); Glomerular Filtration Rate Greater Than 89 mL/min (>89); Glucose,Random 94 mg/dL (74-106); Magnesium 1.6 mg/dL (1.5-2.5); Potassium 3.9 meq/L (3.5-5.1); Sodium 140 meq/L (136-145)
--- NOTE | 2018-02-15 08:05 | P.PN ---
Subjective Interval history: no new c/o, tolerated solid food, no n/v, (+) flatus / bm, ambulating, feels well and wants to go home Physical Exam Vital signs: Vital Signs 02/14/18 12:00 02/14/18 16:00 02/14/18 16:04 Temperature 98.4 F 98 F Pulse Rate 77 73 Respiratory Rate 18 18 18 Blood Pressure 121/72 Pulse Oximetry 98 98 02/14/18 20:00 02/14/18 20:10 02/15/18 00:00 Temperature 97.8 F 97.9 F Pulse Rate 68 77 79 Respiratory Rate 18 18 Blood Pressure 117/72 121/79 Pulse Oximetry 96 98 02/15/18 00:54 02/15/18 04:00 02/15/18 07:45 Temperature 97.9 F Pulse Rate 70 71 59 L Respiratory Rate 14 Blood Pressure 120/78 Pulse Oximetry 97 Intake & Output 02/14/18 02/15/18 02/15/18 18:59 06:59 18:59 Intake Total 1100 / 1100 2560 / 2560 Output Total 1900 / 1900 Balance 1100 / 1100 660 / 660 Weight 72.9 kg Intake: IV 1100 / 1100 1000 / 1000 NS Inj 1,000 ML @ 100 mls/hr IV 1000 / 1000 1000 / 1000 .CONT .Q10H [facility] Rx#:[id number] Levaquin 500 mg Premix Inj 500 100 / 100 mg In 100 ml @ 100 mls/hr IV. SIG Q24H [facility] Rx#:[id number] Oral 1560 / 1560 Output: Urine 1900 / 1900 Other: # Voids 5 Date of Last Bowel Movement 02/15/18 # Bowel Movements 1 - Constitutional no acute distress - Routine Abdominal Exam Present: soft, normoactive bowel sounds - Routine Neurological Exam Present: alert, oriented X3 Results - Labs CBC & Chem 7: 02/12/18 12:28 02/15/18 05:26 Laboratory Results - last 24 hr 02/15/18 05:26 Sodium 140 Potassium 3.9 D Chloride 107 Carbon Dioxide 24.6 Anion Gap 8 BUN 4 L Creatinine 0.50 Estimated GFR Greater than 89 Random Glucose 94 Calcium 7.7 L Phosphorus 2.0 L Magnesium 1.6 Assessment and Plan - Plan hd# doing well, post-op ileus resolved looking forward to going home today if cleared by primary medical service Q&A, she understands she is to call my office to set up appointment 1-2 weeks
[2018-02-15 08:30] VITALS: BP 108/79; PULSE 76; RESP 18; TEMP 97.7; O2SAT 99
--- NOTE | 2018-02-15 09:42 | P.DS ---
Date of admission: 02/10/18 22:40 Primary care physician: Brock Mota Anticipated date of discharge: 02/15/18 Brief History from admission: Mrs. Hernadez is a pleasant 72-year-old female with a history of PE/DVT in 1998 followed by 1 year of anticoagulation, right breast cancer, hyperlipidemia , and ovarian adenocarcinoma with recent exploratory laparotomy with ARI and BSO and resection of bilateral ovarian masses on 01/31/[address] Jones who was admitted to [facility] for management of small bowel obstruction and bilateral pneumonia on February 07. The patient has been transferred to [facility] under the hospitalist service for further evaluation and management. Patient is seen in her hospital room. She reports pain level of 3 out of 10, throughout abdomen but mostly on the right, worse with light palpation and improved with IV pain medications. She reports improvement of nausea with NG tube to low intermittent wall suction. . Patient update on day of discharge: The patient was feeling great and wanted to go home. She was tolerating a diet. Her family was at the bedside. Their questions were answered. Discussed with surgery. DS: Medications - Discharge Medications Prescriptions: pantoprazole 40 mg PO DAILY #30 tab potassium phosphate, monobasic [K-Phos Original] 500 mg PO BID #14 tab DS: Summary Hospital Course: Small bowel obstruction Mrs. Hernadez is a pleasant 72-year-old female with a history of PE/DVT in 1998 followed by 1 year of anticoagulation, right breast cancer, hyperlipidemia , and ovarian adenocarcinoma with recent exploratory laparotomy with ARI and BSO and resection of bilateral ovarian masses on 01/31/[address] Jones who was admitted to [facility] for management of small bowel obstruction and bilateral pneumonia on February 07. The patient has been transferred to [facility] under the hospitalist service for further evaluation and management. General surgery was consulted. The pt was continued on an NGT. She received antiemetics and pain medications as needed. Repeat KUB with resolution. NG tube has been removed. Her diet was advanced to a regular diet, which she tolerated well. She will continue a bowel regimen. She will follow up with Dr. Jones. Bilateral pneumonia/ Colitis Noted on imaging at prior hospital. The patient has completed a course of Levaquin and Flagyl. She received oxygen and nebs as needed. We encouraged ambulation. Hypokalemia/ Hypophosphatemia Improved. She will be discharged with potassium phosphate. She will follow up with her PCP. - Time Spent with Patient Total time spent providing and/or coordinating discharge services: Greater than 30 minutes - Quality: VTE Deep Vein Thrombosis/Pulmonary Embolism Present on Admission: No Exam Vital signs: Vital Signs 02/14/18 12:00 02/14/18 16:00 02/14/18 16:04 Temperature 98.4 F 98 F Pulse Rate 77 73 Respiratory Rate 18 18 18 Blood Pressure 121/72 Pulse Oximetry 98 98 02/14/18 20:00 02/14/18 20:10 02/15/18 00:00 Temperature 97.8 F 97.9 F Pulse Rate 68 77 79 Respiratory Rate 18 18 Blood Pressure 117/72 121/79 Pulse Oximetry 96 98 02/15/18 00:54 02/15/18 04:00 02/15/18 07:45 Temperature 97.9 F Pulse Rate 70 71 59 L Respiratory Rate 14 Blood Pressure 120/78 Pulse Oximetry 97 02/15/18 08:00 Temperature 97.7 F Pulse Rate 76 Respiratory Rate 18 Blood Pressure 108/79 Pulse Oximetry 99 Intake & Output 02/14/18 02/15/18 02/15/18 18:59 06:59 18:59 Intake Total 1100 / 1100 2560 / 2560 Output Total 1900 / 1900 Balance 1100 / 1100 660 / 660 Weight 72.9 kg Intake: IV 1100 / 1100 1000 / 1000 NS Inj 1,000 ML @ 100 mls/hr IV 1000 / 1000 1000 / 1000 .CONT .Q10H [facility] Rx#:[id number] Levaquin 500 mg Premix Inj 500 100 / 100 mg In 100 ml @ 100 mls/hr IV. SIG Q24H [facility] Rx#:[id number] Oral 1560 / 1560 Output: Urine 1900 / 1900 Other: # Voids 5 Date of Last Bowel Movement 02/15/18 # Bowel Movements 1 Narrative: GENERAL: No distress. SKIN: Warm and dry. HEAD: Atraumatic. Normocephalic. EYES: Pupils equal and round. No scleral icterus. No injection or drainage. ENT: No nasal bleeding or discharge. Mucous membranes pink and moist. NECK: Trachea midline. CARDIOVASCULAR: Regular rate and rhythm. RESPIRATORY: No accessory muscle use. Clear to auscultation. Breath sounds equal bilaterally. GASTROINTESTINAL: Abdomen soft, nondistended, mildly tender. MUSCULOSKELETAL: Extremities without clubbing, cyanosis, or edema. No obvious deformities. NEUROLOGICAL: Awake and alert. No obvious cranial nerve deficits. Motor grossly within normal limits. Five out of 5 muscle strength in the arms and legs. Normal speech. PSYCHIATRIC: Appropriate mood and affect; insight and judgment normal. Results Procedures completed during hospitalization: None Labs on day of discharge: Labs from last 24 hours 02/15/18 05:26 Sodium 140 Potassium 3.9 D Chloride 107 Carbon Dioxide 24.6 Anion Gap 8 BUN 4 L Creatinine 0.50 Estimated GFR Greater than 89 Random Glucose 94 Calcium 7.7 L Phosphorus 2.0 L Magnesium 1.6 - Impressions ITS Impressions Abdomen X-Ray 02/13/18 00:00 CONCLUSION: 1. The bowel gas pattern is within normal limits. 2. NG tube in stomach. Discharge Plan - Discharge Disposition Patient Disposition: 01 Discharge Home - Discharge Condition Condition: Stable - Discharge Order Discharge Orders: Discharge Order (Routine); Ordered 02/15/18 Ordered By: Pollo Murillo - Discharge Details Anticipated Discharge Date: 02/15/18 - Physicians Team Primary Care Provider: Brock Mota Attending Provider: Pollo Murillo Other Providers: Tushar Manuel MD ; Andrew Gunn MD ; [employer] - Rxs /Orders / Referrals /Forms Prescriptions: New pantoprazole 40 mg Tablet,Delayed Release (Dr/Ec) 40 mg PO DAILY Qty: 30 RF: 0 potassium phosphate, monobasic [K-Phos Original] 500 mg Tablet,Soluble 500 mg PO BID Qty: 14 RF: 0 Continue ibuprofen-diphenhydramine cit [Advil PM] 200-38 mg Tablet 2 tab PO HS [id number] K [Adults Multivitamin] 18 mg iron-400 mcg-25 mcg Tablet 1 tab PO DAILY pravastatin 40 mg Tablet 40 mg PO DAILY Discontinued oxycodone-acetaminophen 5-325 mg Tablet 1 tab PO Q4H PRN (Reason: Pain Scale 1 To 5) Qty: 42 RF: 0 Referrals: Alisha Jones MD [Physician] - See Instructions (1 week) Brock Mota MD [Primary Care Provider] - See Instructions - Discharge Instructions Patient Printed Instructions: Acute Abdominal Pain (ED), Bowel Obstruction (DC) , Ileus (DC) Additional Instructions: Follow up with Dr. Jones in 1 to 2 weeks. Call him with any problems
--- NOTE | 2018-02-15 09:45 | P.PNGS ---
Subjective Patient reports: feels better, flatus, bowel movement Interval history: DAILY PROGRESS NOTE FOR SURGICAL ATTENDING, DR. DONOVAN MELGAR Resting in bed at bedside Eager to get home Physical Exam Vital signs: Vital Signs 02/14/18 12:00 02/14/18 16:00 02/14/18 16:04 Temperature 98.4 F 98 F Pulse Rate 77 73 Respiratory Rate 18 18 18 Blood Pressure 121/72 Pulse Oximetry 98 98 02/14/18 20:00 02/14/18 20:10 02/15/18 00:00 Temperature 97.8 F 97.9 F Pulse Rate 68 77 79 Respiratory Rate 18 18 Blood Pressure 117/72 121/79 Pulse Oximetry 96 98 02/15/18 00:54 02/15/18 04:00 02/15/18 07:45 Temperature 97.9 F Pulse Rate 70 71 59 L Respiratory Rate 14 Blood Pressure 120/78 Pulse Oximetry 97 02/15/18 08:00 Temperature 97.7 F Pulse Rate 76 Respiratory Rate 18 Blood Pressure 108/79 Pulse Oximetry 99 Intake & Output 02/14/18 02/15/18 02/15/18 18:59 06:59 18:59 Intake Total 1100 / 1100 2560 / 2560 Output Total 1900 / 1900 Balance 1100 / 1100 660 / 660 Weight 72.9 kg Intake: IV 1100 / 1100 1000 / 1000 NS Inj 1,000 ML @ 100 mls/hr IV 1000 / 1000 1000 / 1000 .CONT .Q10H [facility] Rx#:[id number] Levaquin 500 mg Premix Inj 500 100 / 100 mg In 100 ml @ 100 mls/hr IV. SIG Q24H [facility] Rx#:[id number] Oral 1560 / 1560 Output: Urine 1900 / 1900 Other: # Voids 5 Date of Last Bowel Movement 02/15/18 # Bowel Movements 1 Narrative: Alert and awake Abd: soft; incision with Steri Strips Results - Labs 02/12/18 12:28 02/15/18 05:26 Laboratory Results - last 24 hr 02/15/18 05:26 Sodium 140 Potassium 3.9 D Chloride 107 Carbon Dioxide 24.6 Anion Gap 8 BUN 4 L Creatinine 0.50 Estimated GFR Greater than 89 Random Glucose 94 Calcium 7.7 L Phosphorus 2.0 L Magnesium 1.6 - Imaging Imaging: ITS Impressions Assessment and Plan - Assessment (1) Ileus, postoperative Code(s): K91.89 - Other postprocedural complications and disorders of digestive system; K56.7 - Ileus, unspecified Status: Acute Plan: 72 year old female s/p ARI/BSO on Jan [address] Jones; now back with abdominal pain; nausea; vomiting; SBO vs ileus -Favor post operative ileus ---resolved -Tolerating regular diet -Continue to be OOB and mobilize -+BM -Discussed with ALEJANDRA Merrill -SIMIN clear for DC -No need to follow up unless there is an issue -Recommend daily bowel regimen ---colace/MOM/Mirilax as needed - Attending Attestation NOTE FOR SURGICAL ATTENDING, DR. DONOVAN MELGAR I agree with above assessment and plan. The exam, history, and the medical decision-making described in the above note were completed with the assistance of the mid-level provider. I reviewed and agree with the findings presented. The following services were provided during this hospital visit: Chart data review, vital sign assessments/reviewing monitor data Review of consultations notes if present. Medication orders/review and/or management Ordering and/or reviewing lab tests Ordering and/or interpreting/reviewing x-rays and/or diagnostic studies Care of the patient and discussion of the patient with the care team Documentation time To help prompt me to consider important information that might be impacting today's encounter and assessment, Information from prior notes written by myself or my colleagues may have been "brought forward/copy and pasted" into today's note.
[2018-02-15] MEDS: Polyethylene Glycol 3350 17 GM Packet PO SCH (10:15)
[2018-02-15] MEDS: Mag Sulf 1 gm/100 ml Premix 100 ML IV.SIG SCH ×2 (10:15→11:27)
[2018-02-15] MEDS: Famotidine PF Inj 20 MG/2 ML Vial IV.PUSH SCH (10:15)
[2018-02-15] MEDS: Potassium Phosphate 500 MG Soluble Tablet PO SCH (11:42)
== END 2018-02-15 13:32 | disposition home or self-care (01) ==
LOC: HCIN 22:40
PROVIDERS: ADMIT Hospitalist; ATTEND Hospitalist